=== PATIENT | male | born 1990 | race Caucasian/White ===

== ENCOUNTER 2023-06-18 18:49 | Emergency (ER) | payer OTHER, SELFPAY ==
[2023-06-18 18:52] VITALS: BP 138/95
[2023-06-18 19:17] VITALS: BMI 35.2
--- NOTE | 2023-06-18 20:40 | ED.GENMED ---
History of Present Illness
General
Chief Complaint: Bowel Problem
Source: patient, records and family
Exam Limitations: none
Time Seen by Provider: 06/18/23 19:03
Nursing documentation reviewed up to this point in time: agreed with
Travel History
Have you had any contact with someone who has COVID-19?: No
Do you have any symptoms of coronavirus? Fever > 100 degrees, chills, cough, shortness of breath, sore throat, loss of taste or smell, muscle aches, or headache?: No
History of Present Illness
History of Present Illness:
Patient is a 32-year-old male with a history of spina bifida and chronic constipation who presents because of no significant bowel movement in the past few days. Patient denies any abdominal pain or distention. Patient denies any nausea or
vomiting. Patient denies any decreased appetite. Patient's mother is given irrigation through cecostomy tube as well as Dulcolax, mag citrate and soapsuds irrigation. Patient denies fever and chills. Patient was recently diagnosed with
hypothyroidism but has not started the medication as of yet.
Past History
Past History
ED Past Medical History: None and Other (spina bifida/shunt/cecostomy)
ED Past Surgical History: None
Social History
Tobacco: Non-smoker
Alcohol: None
Drug: None
Personal: Single
Living: with family
Family History
Family History: Negative Diabetes, Hypertension or CAD
Review of Systems
Review of Systems
All Other Systems: Not applicable
Phy Exam
Physical Exam
Physical Exam:
Physical Exam
General: No apparent distress, alert and appropriate, well nourished, well hydrated
HENT: Normocephalic, supple with no lymphadenopathy, no thyromegaly
Eyes: Clear sclera, conjuctiva without injection
Heart: Regular rhythm and rate. No S3, S4.
Lungs: No respiratory distress, no stridor, lung sounds clear and equal bilaterally
Abdomen: Soft, nontender, no organomegaly, BS good
Neuro: Unchanged
Skin: no rash
Psychiatric: well kept. interactive and cooperative
Extremities: No edema, cyanosis
Course
Orders/Labs/Results
Orders:
Orders
06/18/23 19:18
Abdomen Xray - 1 View [CR Abdomen - 1 View] Urgent
Comment:
Reason For Exam: fecal impaction?
Vital Signs
Initial and Last Documented VS:
Initial Vital Signs
Temp Pulse Resp BP Pulse Ox
98.6 F 87 18 138/95 99
06/18/23 18:52 06/18/23 18:52 06/18/23 18:52 06/18/23 18:52 06/18/23 18:52
Last Documented Vital Signs
Temp Pulse Resp BP Pulse Ox
98.6 F 87 18 138/95 99
06/18/23 18:52 06/18/23 18:52 06/18/23 18:52 06/18/23 18:52 06/18/23 18:52
*Radiology
Radiology exam reviewed: radiology read reviewed (No stool burden)
*Pulse Oximetry
Patient hypoxic: no
*EKG
Interpreted by ED Provider?: NA
*Care Taker Interpretation
Rate: Care Taker- N/A
*Critical Care Note
Total Time (30-74mins, 75-104mins- exclusive of procedures): Not Applicable
ED Attending Note
-
Portions of this chart may have been created with voice recognition software.� Occasional wrong word or��sound alike� substitutions may have occurred due to the inherent limitations of voice recognition software.
Discharge Plan
Departure
Patient Disposition: Home (Routine Discharge)
Date of Disposition: 06/18/23
Time of Disposition: 20:43
Patient with high blood pressure during this ER visit?: No
Condition: Good
Covid-19: Not Applicable
Discharge Problem:
Constipation
Instructions: Constipation, Adult (DC)
Prescriptions:
No Action
divalproex 250 MG tablet,delayed release (DR/EC)
250 mg PO .AM
oxybutynin chloride 5 MG tablet
5 mg PO BID
Depakote:
375 mg PO HS
sulfamethoxazole-trimethoprim 20 ML suspension
20 ml PO Q12 Qty: 120 0RF
Rx Instructions:
20 ml PO every 12 hours for 4 days
Referrals:
Salomón Chen MD [Family Provider] - As needed
Activity Restrictions/Additional Instructions:
Continue present medications and therapy.
Interventions
Interventions:
*Risk Screen - Suicide Last Done: 06/18/23 18:52
*General Assessment Last Done: 06/18/23 18:52
*Neglect/Abuse Screening Last Done: 06/18/23 18:52
ED- Fall Risk Assessment Last Done: 06/18/23 18:52
*ED COVID-19 Vaccine History Last Done: 06/18/23 18:52
XE-Ahdfip-Iglmadetrd Assessment Last Done: 06/18/23 19:17
[2023-06-18 21:26] VITALS: BP 142/89
== END 2023-06-18 21:28 | disposition home or self-care (01) ==
LOC: EMR 18:49
PROVIDERS: EMERGENCY PHYSICIAN Emergency Medicine; FAMILY PHYSICIAN Family Medicine
DX: K59.00 Constipation, unspecified (principal); E03.9 Hypothyroidism, unspecified; Q05.9 Spina bifida, unspecified
CPT/HCPCS: 99283; 74018

== ENCOUNTER → 2024-01-24 15:30 | Outpatient (REF) | payer OTHER, SELFPAY | LOC: RAD 15:30 | PROVIDERS: ATTENDING PHYSICIAN Specialist; FAMILY PHYSICIAN Family Medicine | DX: N31.9 Neuromuscular dysfunction of bladder, unspecified (principal) | CPT/HCPCS: 76770 ==

== ENCOUNTER 2024-05-28 04:20 | Inpatient (IN) | payer OTHER, SELFPAY ==
[2024-05-27 21:06] VITALS: BP 150/108
[2024-05-27 23:43] LABS: Urine Albumin Negative (Neg - Trace); Urine Bilirubin 1+ (Negative); Urine Character Clear (Clear); Urine Color Yellow; Urine Glucose Negative (Negative); Urine Ketone 2+ (Negative); Urine Leukocyte Negative (Negative); Urine Nitrite Negative (Negative); Urine Occult Blood Negative (Negative); Urine Urobilinogen 1+ (Neg - 1+); Urine pH 6.5 (5.0-9.0)
[2024-05-28] VITALS (9 sets, daily range): BP systolic 114–158; BP diastolic 83–108
[2024-05-28 01:00] LABS: % Basophils 0.4 % (0-2); % Eosinophils 0.1 % (0-6); % Immature Granulocytes 3.7 % (0-0.5); % Lymphocytes 11.1 % (20.5-51.1); % Monocytes 6.7 % (1.7-9.3); Absolute Immature Granulocytes 0.3 10^3/uL (0-0.05); Absolute Lymphocytes 0.9 10^3/uL (1.2-3.4); Absolute Monocytes 0.6 10^3/uL (0.1-0.6); Absolute Neutrophils 6.5 10^3/uL (1.4-6.5); Hematocrit 41.9 % (39.0-52.0); Hemoglobin 13.7 g/dL (13.0-18.0); Mean Corp Hgb Conc. 32.7 g/dL (33.0-37.0); Mean Corpuscular Hgb 28.6 pg (27.0-31.0); Mean Corpuscular Volume 87.5 fL (80.0-94.0); Nucleated Red Blood Cells % 0 % (-); Platelet Count 281 10^3/uL (130-400); Red Blood Cell Count 4.79 10^6/uL (4.70-6.10); Red Cell Dist. Width 14.7 % (11.5-14.5); White Blood Cell Count 8.4 10^3/uL (4.8-10.8)
[2024-05-28] MEDS: ZOFRAN 4 MG IV (01:15)
[2024-05-28] MEDS: TORADOL 15 MG IV (01:15)
[2024-05-28 01:24] LABS: ALT (SGPT) 1557 U/L (0-50); AST (SGOT) 896 U/L (17-59); Albumin 4.5 g/dl (3.5-5.0); Alkaline Phosphatase 272 U/L (38-126); Blood Urea Nitrogen 10 mg/dl (9-20); Calcium 9.1 mg/dl (8.4-10.2); Carbon Dioxide 25 mmol/L (22-30); Chloride 101 mmol/L (98-107); Glucose 146 mg/dl (70-99); Potassium 4.3 mmol/L (3.5-5.1); Sodium 139 mmol/L (135-145); Total Bilirubin 3.4 mg/dl (0.2-1.3); Total Protein 7.3 g/dl (6.3-8.2); eGFR > 60.00
--- NOTE | 2024-05-28 01:36 | ED.GENMED ---
History of Present Illness
General
Chief Complaint: Male Genito-Urinary Symptoms
Source: patient and family
Exam Limitations: none
Time Seen by Provider: 05/28/24 00:15
Nursing documentation reviewed up to this point in time: agreed with
History of Present Illness
History of Present Illness:
This is a 33-year-old gentleman with history of spina bifida, seizure disorder, RANGE OPERATOR shunt, neurogenic bladder. Self catheterizes 4-5 times per day. Resides at home with his parents.
He presents tonight with complaints of left flank/left back pain associated with nausea without vomiting. Pain began this evening and has been persistent. He admits that he has difficulty finding a comfortable position but repositioning does not
exacerbate his pain. He has not had a fever, no chest pain. He does admit to mild nasal congestion, mild intermittent dry cough with mild URI symptoms that began a few days ago, improving. His mother is concerned that his urine has been bright
yellow this morning and somewhat more concentrated, darker in color this evening. He has had previous UTIs and generally with UTI his urine is cloudy which it has not been today.
He has chronic constipation, has cecostomy in place. Constipation and bowel movements have been stable/unchanged.
Past History
Past History
ED Past Medical History: None and Other (spina bifida/shunt/cecostomy)
ED Past Surgical History: None
Social History
Tobacco: Non-smoker
Alcohol: None
Drug: None
Personal: Single
Living: with family
Family History
Family History: Negative Diabetes, Hypertension or CAD
Phy Exam
Physical Exam
Physical Exam:
GENERAL: 33-year-old gentleman appears his stated age, bright and alert, pleasant, appears in no acute distress. Both parents are accompanying.
EYE: Pupils are equal.
NECK: Supple, nontender, no meningismus, no significant adenopathy.
ENT: posterior pharynx is clear, oral mucosa is moist. TM clear b/l, nares have mild clear rhinorrhea.
CARDIAC: Regular rate and rhythm. no murmur.
LUNGS: Clear breath sounds bilaterally, no acute respiratory distress, no wheezes/rales/rhonchi
ABDOMEN: Soft, nondistended, mild generalized upper abdominal tenderness with deep palpation only, no r/g, mild left CVA tenderness with percussion. Normoactive BS.
NEUROLOGICAL: Alert and oriented x3, no lateralizing weakness.
SKIN: Warm and dry, normal color, skin intact. No rash.
MUSCULOSKELETAL: No C/C/E. peripheral pulses are full and equal b/l. No palpable tenderness.
PSYCH: Normal and appropriate interaction.
Sepsis
Sepsis Screening
Sepsis Assessment: Sepsis Ruled Out
Sepsis Screen
Sepsis Screen: Sepsis Ruled Out
Date: 05/28/24
Time: 07:23
Course
Orders/Labs/Results
Orders:
Orders
05/27/24 23:13
Complete Blood Count/With Diff Urgent
Comprehensive Metabolic Panel Urgent
05/27/24 23:19
Urinalysis Urgent
Date Specimen was Collected: 05/27/24
Time Specimen was Collected: 21:11
05/28/24 00:36
CT Abd/pel Without Iv Or Oral Urgent
Comment:
Reason For Exam: acute left flank pain, nausea
05/28/24 00:37
Ketorolac [Toradol] 15 mg IV NOW STA
Ondansetron Injectable [Zofran] 4 mg IV NOW STA
05/28/24 00:44
Lipase Urgent
05/28/24 01:27
Add On- LAB Urgent
Tests Added?: lipase
05/28/24 02:15
Divalproex Sodium [Depakote Sprinkle] 375 mg PO NOW STA
Piperacillin/Tazo 4.5 Gram [Zosyn] 4.5 gram in 100 ml IV NOW
05/28/24 02:19
0.9% Sodium Chloride 1000 ml [Nss] 1,000 ml IV 250 mls/hr
Morphine Sulfate 4 mg IV NOW STA
US Abdomen Complete/Upper Urgent
Comment:
Reason For Exam: back pain, elevated LFT's
05/28/24 03:56
Admit/Transfer Patient As Directed
Co-Sign Provider:
Level of Care: Inpatient admission
Assign to:: Telemetry
Physician / Group: Ha
Diagnosis: Acute Calculous Cholecystitis
Reason for Telemetry: Arrhythmia
Date to Stop Telemetry: 05/31/24
Time to Stop Telemetry: 11:00
Reason for Hospitalization: Acute Calculous Cholecystitis
Expected length of stay greater than two midnights?: Yes
ELOS- Estimated Length of Stay in days: 3
I certify the patient meets the requirements for IP care: Yes
PRN Pain Medication Management As Directed
May give lesser potent ordered pain med per pt: Yes
preference::
Protocol:: Medication orders for pain may be administered in a
manner that supports deferring to patient preference
when the pt is:
- Requesting an ordered lesser potent pain medication.
Least to most potent pain medications are defined
as: acetaminophen < NSAID < tramadol < opioids
(morphine, oxycodone, hydromorphone).
- Requesting a lesser dose of the same medication IF
ORDERED.
- Requesting a less intrusive route of administration
if both routes are prescribed by the provider (PO <
IV).
05/28/24 03:57
Code Status As Directed
Resuscitation Status: Full Code
05/28/24 05:04
Acetaminophen [Tylenol] 650 mg PO Q4HPRN PRN
Divalproex Delayed Rel. 12 Hr [Depakote (12 Hr Release)] 250 mg PO DAILY
HYDROmorphone [Dilaudid] 0.5 mg IV Q4HPRN PRN
Ondansetron Injectable [Zofran] 4 mg IV Q6HPRN PRN
05/28/24 05:04
SURGICAL CONSULT Routine
Consulting Provider: Trevin Galindo
Was physician already notified: Yes
Reason for consult: Acute Calculous Cholecystitis
Activity As Directed
Activity Level: Out of Bed- Chair
With Assistance
Bladder Scan As Directed
Follow Bladder Retention/Intermittent Cath Algorithm?: Yes
PRN if no void in __ hours: 6
Frequency: Per Retention Algorithm
If Bladder Scan Result >: 400
then:: Straight cath
I/O [Intake/ Output] As Directed
Frequency: Per unit guidelines
Ostomy Care As Directed
Precautions As Directed
Type of Precautions: Seizure
Straight Cath As Directed
Frequency: Per Retention Algorithm
Additional Instructions: straight cath as needed per acute urinary retention algorithm for 24 hrs
Additional Instructions: for bladder scan greater than 400 mL
Vital Signs As Directed
Frequency: Per unit guidelines
Weight As Directed
Frequency: Daily
Oxygen Therapy [O2 Therapy] [RESP] Routine
Titrate/Wean O2 to maintain O2 sat greater than (%): 94
DX Deep Vein Thrombosis Video Routine
05/28/24 05:17
Complete Blood Count/No Diff IN AM
Hepatitis A Antibody, Total Routine
Hepatitis A IgM Antibody Routine
Hepatitis B Core Ab, IgM Routine
Hepatitis B Core Ab, Total Routine
Hepatitis B Surface Antibody Routine
Hepatitis B Surface Antigen Routine
Hepatitis C Antibody Routine
Monotest Urgent
05/28/24 Breakfast
NPO
Allow oral meds: Yes
Allow clear liquids: Sips of Clears
05/28/24 08:00
Ditropan 7.5 ml PO BID
Heparin 5,000 units SC Q8
Pantoprazole [Protonix IV] 40 mg IV DAILY
sertraline 25 mg PO BID
05/28/24 12:00
Piperacillin/Tazo 3.375 Gram [Zosyn] 3.375 gram in 50 ml IV Q6H
05/28/24 22:00
Depakote: 375 mg PO HS
05/31/24 11:00
DC Protocol for Telemetry ONCE
Abnormal Lab Results
05/27/24 05/28/24
23:19 00:44
MCHC 32.7 L g/dL
(33.0-37.0)
RDW 14.7 H %
(11.5-14.5)
Abs Immat Gran (auto) 0.3 H 10^3/uL
(0-0.05)
Absolute Lymphs (auto) 0.9 L 10^3/uL
(1.2-3.4)
Immature Gran % 3.7 H %
(0-0.5)
Neutrophils % 78.0 H %
(42.2-75.2)
Lymphocytes % 11.1 L %
(20.5-51.1)
Creatinine 0.3 L mg/dL
(0.7-1.3)
Glucose 146 H mg/dl
(70-99)
Total Bilirubin 3.4 H mg/dl
(0.2-1.3)
AST 896 H* U/L
(17-59)
ALT 1557 H* U/L
(0-50)
Alkaline Phosphatase 272 H U/L
(38-126)
Urine Ketones 2+ A
(Negative)
Urine Bilirubin 1+ A
(Negative)
05/28/24 00:44
05/28/24 00:44
Vital Signs
Initial and Last Documented VS:
Initial Vital Signs
Temp Pulse Resp BP Pulse Ox
99 F 88 22 150/108 98
05/27/24 21:06 05/27/24 21:06 05/27/24 21:06 05/27/24 21:06 05/27/24 21:06
Last Documented Vital Signs
Temp Pulse Resp BP Pulse Ox
99 F 89 20 114/83 98
05/27/24 21:06 05/28/24 05:05 05/28/24 05:05 05/28/24 05:05 05/28/24 05:05
MDM/Problems Addressed
Differential Diagnosis Includes:
Concern for UTI, ureteric stone, musculoskeletal back pain, pneumonia, gastroenteritis, pancreatitis.
Overall appears comfortable. Afebrile.
Thus far urine is unremarkable save for +1 urobilinogen, +2 ketones. Clinically patient appears euvolemic.
Labs are pending.
Will check CT abdomen and pelvis.
Will medicate for pain and nausea with Toradol and Zofran.
Chronic conditions affecting care: Neurological disorder
*Radiology
Radiology exam reviewed: radiology read reviewed
*Pulse Oximetry
Patient hypoxic: no
*Critical Care Note
Total Time (30-74mins, 75-104mins- exclusive of procedures): Not Applicable
Update Note
Update Note:
02:15
Patient has had relief of nausea but continues with primarily left flank/left back pain.
Labs remarkable for significantly elevated LFTs, elevated T. bili of 3.4, elevated alkaline phosphatase of 275. Lipase is normal.
CAT scan shows a prominent gallstone with mild gallbladder wall thickening concerning for cholecystitis. No bowel obstruction.
Will initiate IV Zosyn for acute cholecystitis.
General surgery notified. Recommend admit to hospital service with consult to surgery.
ED Attending Note
-
Portions of this chart may have been created with voice recognition software.� Occasional wrong word or��sound alike� substitutions may have occurred due to the inherent limitations of voice recognition software.
Discharge Plan
Departure
Patient Disposition: Admit
Date of Disposition: 05/28/24
Time of Disposition: 02:18
Admit to: Med/Surg
Admit to doctor: Ha
Presentation/result/management discussed w/ accepting MD/DO: Hospitalist
Discharge Problem:
Acute calculous cholecystitis, Spina bifida with hydrocephalus, lumbar region
Interventions
Interventions:
*Risk Screen - Suicide Last Done: 05/27/24 21:06
*General Assessment Last Done: 05/28/24 01:06
*Neglect/Abuse Screening Last Done: 05/27/24 21:06
ED- Fall Risk Assessment Last Done: 05/28/24 01:06
*ED COVID-19 Vaccine History Last Done: 05/28/24 01:06
ED-Male Genitourinary Assessment Last Done: 05/28/24 01:06
[2024-05-28 02:01] LABS: Lipase 69 U/L (23-300)
--- NOTE | 2024-05-28 04:01 | HPS.HSE ---
Family Physician
-
Family Physician: Salomón Chen
Chief Complaint
-
Abd Pain
History of Present Illness
Patient is a 33y M with PMH significant for spina bifida s/p MANAGER PROCUREMENT shunt, seizure disorder and chronic constipation / cecostomy who presents to ED complaining of abdominal pain. History obtained from patient and his family at the bedside. Patient
states that he was feeling fairly well until this evening when he developed L flank pain radiating around to his abdomen. The pain started shortly after eating dinner. He had nausea with 'dry heaves' but no actual emesis. Patient denies any
fevers / chills. He denies any prior history of similar symptoms.
Mother noted that his urine was bright yellow in appearance all day today - which is also unusual.
Evaluation in the ED reveals abnormal LFTs and large gallstone with GB wall thickening.
Medical History
Past Medical History
Past Medical History: Reports Other
Additional Past Medical History:
Spina Bifida
Arnold Chiari Syndrome
Seizure Disorder
Neurogenic Bladder
Chronic Constipation
Past Surgical History: Reports Other
Additional Past Surgical History:
MANAGER PROCUREMENT Shunt (6 revisions - most recent in 2004)
Cecostomy
Bilateral Achilles Tendon Release
Lumbar Fusion
Social History
Tobacco: Non-smoker
Alcohol: None
Living: With Family
Family History
Family History: Not pertinent
Allergies / Home Medications
Allergies reflects when Allergies were last updated in [facility].
Home Medications with original date entered in [facility]
Allergy/Medication List:
Allergies
Allergy/AdvReac Type Severity Reaction Status Date / Time
latex [Latex] Allergy Unknown Verified 05/27/24 21:10
Home Medications
Depakote: 375 mg PO HS 12/11/11
divalproex 250 mg tablet,delayed release 250 mg PO .AM 12/11/11
Ditropan 7.5 ml PO BID 05/28/24
Miralax 12.5 ml PO DAILY 05/28/24
levothyroxine 1 tab PO DAILY 05/28/24
sertraline 25 mg PO BID 05/28/24
Review of Systems
-
History Source: Patient
A 12 point ROS was completed and negative except as noted: Yes
Constitutional: Denies Fever or Chills
Respiratory: Denies Cough or Trouble Breathing
Cardiac: Denies Chest Pain or Palpitations
Abdomen/GI: Reports Abdominal Pain, Nausea and Constipated; Denies Vomiting, Diarrhea or Anorexia
: Reports Flank Pain and Difficulty Voiding; Denies Dysuria or Frequency
Musculoskeletal: Denies Joint Pain or Edema
Neurological: Denies Dizzy or Headache
Physical Exam
Vital Signs
Vital Signs
Temp Pulse Resp BP Pulse Ox
99 F 84 20 146/95 98
05/27/24 21:06 05/28/24 01:06 05/28/24 01:06 05/28/24 01:06 05/28/24 01:06
Physical Exam
General: Other (33y M in no acute distress at present.)
HEENT: Moist mucous membranes and PERRLA
Respiratory: Clear; No Wheezes or Rales
Cardiac: S1/S2 and Regular Rhythm; No Murmur
GI: Soft, Non Distended and Other (Epigastric / LUQ tenderness without rebound or guarding. Pos BS. Cecostomy.)
Musculoskeletal: No Clubbing, No Cyanosis and Other (Trace LE edema.)
Neuro: AO x 3
Laboratory Results
-
05/28/24 00:44
05/28/24 00:44
Laboratory Results
Total Bilirubin 3.4 mg/dl (0.2-1.3) H 05/28/24 00:44
AST 896 U/L (17-59) H* 05/28/24 00:44
ALT 1557 U/L (0-50) H* 05/28/24 00:44
Alkaline Phosphatase 272 U/L (38-126) H 05/28/24 00:44
Lipase 69 U/L (23-300) 05/28/24 00:44
Impression/Plan
-
A/P: Patient is a 33y M with PMH significant for spina bifida and seizure disorder who presents to ED complaining of abdominal pain since this evening.
Acute Calculous Cholecystitis
Abnormal LFTs
- Admit for further evaluation and treatment.
- Patient presents with post-prandial pain, nausea, abnormal LFTs and large gallstone / GB wall thickening on imaging.
- Continue IV abx with Zosyn for now.
- Surgery evaluation for additional recommendations / possible cholecystectomy.
- Follow for any new / worsening symptoms.
- Check viral studies / serologies for completeness.
Spina Bifida
Seizure Disorder
- Stable. No recent seizure activity on current med regimen.
- Continue usual AED regimen without interruption.
- Follow for any breakthrough seizure activity.
- MANAGER PROCUREMENT shunt in place - last revised in 2004. No recent issues.
Chronic Constipation
- Impaired transit secondary to underlying neurologic disorder.
- Has cecostomy and tube for administration of enemas (tap water) four times weekly.
- Ostomy care.
- Follow bowel movements / etc.
Neurogenic Bladder
- Patient self-caths about 4-5 times daily on average.
- Bladder scan protocol.
- Straight cath as needed. OK for patient to self-cath.
Hypothyroidism
- Patient not certain of current T4 dose.
- Restart T4 supplementation once dose confirmed.
DVT Prophylaxis: Subcut Heparin
Code Status: Full
[2024-05-28] MEDS: NSS 1000 IV ×2 (05:00→23:36)
[2024-05-28 05:34] LABS: Hematocrit 40.7 % (39.0-52.0); Hemoglobin 13.5 g/dL (13.0-18.0); Mean Corp Hgb Conc. 33.2 g/dL (33.0-37.0); Mean Corpuscular Volume 87.5 fL (80.0-94.0); Mean Platelet Volume 10.4 fL (7.4-10.4); Platelet Count 274 10^3/uL (130-400); Red Blood Cell Count 4.65 10^6/uL (4.70-6.10); Red Cell Dist. Width 14.8 % (11.5-14.5); White Blood Cell Count 7.8 10^3/uL (4.8-10.8)
[2024-05-28 05:39] LABS: Monotest Negative (Negative)
[2024-05-28] MEDS: ZOSYN 100 IV (05:55)
[2024-05-28 05:57] LABS: Albumin 4.2 g/dl (3.5-5.0); Alkaline Phosphatase 266 U/L (38-126); Blood Urea Nitrogen 10 mg/dl (9-20); Calcium 8.9 mg/dl (8.4-10.2); Carbon Dioxide 26 mmol/L (22-30); Chloride 99 mmol/L (98-107); Direct Bilirubin 2.4 mg/dl (0.0-0.4); Glucose 131 mg/dl (70-99); Potassium 4.3 mmol/L (3.5-5.1); Sodium 137 mmol/L (135-145); Total Bilirubin 3.5 mg/dl (0.2-1.3); Total Protein 6.8 g/dl (6.3-8.2); eGFR > 60.00
[2024-05-28] MEDS: MORPHINE SULFATE 4 MG IV (06:05)
[2024-05-28 06:06] LABS: ALT (SGPT) 1471 U/L (0-50); AST (SGOT) 817 U/L (17-59)
[2024-05-28] MEDS: DEPAKOTE (12 HR RELEASE) PO (06:14)
[2024-05-28] MEDS: ZOSYN IV ×2 (06:15→06:45)
[2024-05-28 06:23] LABS: Hepatitis B Surface Antigen Negative (Negative)
[2024-05-28 06:41] LABS: Hepatitis A Antibody, Total Negative (Negative); Hepatitis B Core Ab, Total Negative (Negative); Hepatitis B Surface Antibody Negative; Hepatitis C Antibody Negative (Negative)
[2024-05-28] MEDS: DEPAKOTE (12 HR RELEASE) 250 MG PO (06:46)
--- NOTE | 2024-05-28 08:04 | W.PN.HOSP.TC ---
Today's Communication/Plan
-
MRI
NPO
IVF
Zosyn
GI and Surgery eval
Assessment / Plan
Assessment / Plan
33-year-old male with abdominal pain
Ultrasound of the abdomen 05/28/2024-nonvisualization of the pancreas and spleen. Gallstone with gallbladder wall thickening suggestive of acute cholecystitis
CT abdomen and pelvis-gallstone with possible acute cholecystitis moderate fecal material throughout the colon
Patient is awake and alert denies any right upper quadrant pain. He still has mild left upper quadrant pain
Cardiovascular system S1-S2 appreciated
Chest clear to auscultation
Abdomen mild discomfort to palpation left side no guarding or rigidity
Right cecostomy tube
# Elevated LFTs with hyperbilirubinemia
Postprandial pain nausea
No right upper quadrant pain. Lipase level is normal
Continue IV Zosyn
Get MRI/MRCP
Surgery evaluation appreciated
GI evaluation requested
Check hepatitis panel
# Spina bifida/Chiari II malformation
# Seizure disorder-continue Depakote 250 mg in the morning and 370 5 at night
# Hypothyroidism-continue levothyroxine
# Neurogenic bladder With self-catheterization 4 to 5 times a day
# History of AUTOMATION ARCHITECT shunt with 6 revisions most recent in 2004
# Chronic constipation-continue MiraLAX when taking p.o.
Has cecostomy in 2012 and tube for administration of enemas (tap water) four times weekly.
I discussed that this needs to be continued here he already has constipation on the CAT scan.
Mother has to help the patient with this and they will try it today afternoon
# History of kyphosis /scoliosis /lumbar fusion surgery
# DVT prophylaxis-subcutaneous heparin
# Full code
Discussed with surgeon
D/w MOM AT BED SIDE
Anticipated Discharge: > 48 hours
Subjective/Interval History
-
Date of Service: May 28, 2024
Objective Data
-
Labs:
Laboratory Results
05/28/24 05/28/24
00:44 05:17
WBC 8.4 7.8
Hgb 13.7 13.5
Hct 41.9 40.7
Plt Count 281 274
Sodium 139 137
Potassium 4.3 4.3
Chloride 101 99
Carbon Dioxide 25 26
BUN 10 10
Creatinine 0.3 L 0.4 L
Glucose 146 H 131 H
Calcium 9.1 8.9
Total Bilirubin 3.4 H 3.5 H
AST 896 H* 817 H*
ALT 1557 H* 1471 H*
Alkaline Phosphatase 272 H 266 H
Vital Signs:
Vital Signs
Temp Pulse Resp BP Pulse Ox
99 F 89 20 114/83 98
05/27/24 21:06 05/28/24 05:05 05/28/24 05:05 05/28/24 05:05 05/28/24 05:05
[2024-05-28] MEDS: HEPARIN SC ×2 (08:32→17:18)
[2024-05-28] MEDS: NSS (PRESERVATIVE FREE) 10 ML IV (08:32)
[2024-05-28] MEDS: PROTONIX IV 40 MG IV (08:35)
--- NOTE | 2024-05-28 10:29 | CON.GI ---
Addendum entered and electronically signed by Fanta Perez DO 05/28/24 13:16:
The patient was seen and examined by me independently in collaboration with the nurse practitioner.
Past medical history/social history/medications/allergies/family history reviewed.
Lab data and imaging data reviewed.
33 y.o. male w/ pmhx spina bifida w/ GLASS CUT OFF SUPERVISOR shunt with multiple revisions, chronic constipation s/p cecostomy, seizure d/o, Arnold Chiari syndrome, neurogenic bladder admitted with acute onset left flank pain with radiation to back with associated N/V.
Never had pain like this before. He administers tap water enemas 4x per week, varying consistencies. No change in stool recently.
Labs demonstrate significant liver enzyme elevation, Tbili 3.4, AST 896, ALT 1557, Alk phos [address] scan showing cholelithiasis with possibly acute cholecystitis. Moderate stool burden noted. Abdominal US was subsequently obtained showing a
large, 3.3 cm gallstone in the body with GB wall thickening measuring up to 7 mm. No CBD dilation.
Repeat LFTs show some improvement. Location of pain is baffling, not consistent with biliary pain, however, onset did occur after dinner last night. Overall, he has had improvement in pain but did receive pain medication. He is due for enema today,
does have moderate stool burden present, trapped air/gas? No improvement with belching, has not passed gas.
Plan
-MRCP to evaluate for choledocholithiasis
-scheduled enemas, add miralax prn
-surgical eval
-trend LFTs
Original Note:
Consultation
-
Date/Time Consultation Requested: 05/28/24 0830
Date/Time Consultation Performed: 05/28/24 1030
Requesting Provider: Katie Talbert MD
Performing Provider: YAHAIRA Polk, Kita Perez,
Reason for Consultation: increased LFT's, epigastric and left sided pain
Medical History
Chief Complaint / HPI
Chief Complaint: left side pain with nausea/dry heaves
History of Present Illness:
Pt is a 33yo with spina bifida with GLASS CUT OFF SUPERVISOR shunt with multiple revisions, Seizure disorder, chronic constipation- cecostomy with 4 times per week flush, Arnold Chiari syndrome, neurogenic bladder and now presents with left flank/back pain with nausea
and vomiting. On admission noted with bili 3.4, AST 896, ALT 1557, alk phos 272. CT without contrast Gallstone with possible acute cholecystitis. Abdominal ultrasound recommended. Moderate fecal material throughout the colon. US noted with
Nonvisualization of the pancreas and spleen. Gallstone with gallbladder wall thickening suggesting acute cholecystitis. Clinical and laboratory correlation recommended. Stable with normal CBD 8mm.
In review with patient he has had longstanding constipation issues. He had cecostomy tube placed at [facility] in 2011 and goes for every 6 months changes at [facility]. He was following with Dr. Kern at [place] but has recently retired.
He states he flushes cecostomy tube about 900ml 4 days per week and takes Miralax 1/2 capful daily. He also admits to occasional Imodium use when going out as afraid of accidents. He was doing well but then developed dark urine 05/27 am followed
by post prandial pain after 05/27 dinner with nausea and dry heaves. He is feeling better after admission but still persistent elevated liver functions. No hx similar pain in past. He denies issues with diarrhea or bloody stools. hx colonoscopy
years ago noted tortuous with constipation work up. Pt denies anticoagulation or NSAID use. No hx GPL1 use.
Past Medical History
Past Medical History: Seizures and Other (spina bifida, chronic constipation- cecostomy, arnold chiari syndrome, neurogenic bladder )
Past Surgical History: Orthopedic (lumbar fusion, achilles tendon release) and Other (s/p shunt with multiple revisions)
Social History
Tobacco: Non-Smoker
Alcohol: None
Drug: None
Living: With Family
Family History
Family History: Other (father with hx gallbladder problems)
Allergies / Home Medications
Allergy/AdvReac Type Severity Reaction Status Date / Time
latex [Latex] Allergy Unknown Verified 05/27/24 21:10
�Medication �Instructions �Recorded
acetaminophen 325 mg tablet 325 mg PO DAILYPRN PRN stomach 05/28/24
(Tylenol) pains
calcium carbonate (Calcium 500) 1,000 mg PO DAILY 05/28/24
cholecalciferol (vitamin D3) 25 25 mcg PO DAILY 05/28/24
mcg (1,000 unit) chewable tablet
(Vitamin D3)
divalproex 125 mg capsule,delayed 250 mg PO DAILY 05/28/24
release sprinkle
divalproex 125 mg capsule,delayed 375 mg PO HS 05/28/24
release sprinkle
levothyroxine 88 mcg tablet 88 mcg PO DAILY 05/28/24
(Synthroid)
oxybutynin chloride 5 mg/5 mL oral 7.5 mg PO BID 05/28/24
syrup
polyethylene glycol 3350 17 gram 17 g PO DAILYPRN PRN constipation 05/28/24
oral powder packet (Miralax)
sertraline 50 mg tablet 25 mg PO BID 05/28/24
Review of Systems
-
History Source: Patient and Family
Constitutional: Reports Weight Gain (over several years )
EENT: Reports No Symptoms
Respiratory: Reports No Symptoms
Cardiac: Reports Chest Pain (with abdominal pain )
Abdomen/GI: Reports Abdominal Pain (epigastric with wrap around pain to left side ) and Nausea
: Reports Dark Urine
Musculoskeletal: Reports No Symptoms
Skin: Reports No Symptoms
Neurological: Reports Weakness
Endocrine: Reports No Symptoms
Hematologic/Lymphatic: Reports No Symptoms
Vital Signs
Temp Pulse Resp BP Pulse Ox
98.3 F 91 14 149/88 94
05/28/24 08:25 05/28/24 08:25 05/28/24 08:25 05/28/24 08:25 05/28/24 08:25
Physical Exam
Exam
General: Well Developed, Well Nourished and No Apparent Distress
HEENT: Normocephalic and Anicteric
Respiratory: Clear
Cardiac: Regular Rhythm
GI: Soft, Non Distended, Tender (minimal left flank area ) and Other (right sided cecostomy but with dressing intact )
Musculoskeletal: No Clubbing, No Cyanosis and Edema
Skin: Warm and Dry
Neuro: Awake, Alert, AO x 3 and Other (LE weakness with spinobifida )
Psych: Calm
Results
WBC 7.8 10^3/uL (4.8-10.8) 05/28/24 05:17
Hgb 13.5 g/dL (13.0-18.0) 05/28/24 05:17
Hct 40.7 % (39.0-52.0) 05/28/24 05:17
MCV 87.5 fL (80.0-94.0) 05/28/24 05:17
Plt Count 274 10^3/uL (130-400) 05/28/24 05:17
Absolute Neuts (auto) 6.5 10^3/uL (1.4-6.5) 05/28/24 00:44
Sodium 137 mmol/L (135-145) 05/28/24 05:17
Potassium 4.3 mmol/L (3.5-5.1) 05/28/24 05:17
Chloride 99 mmol/L (98-107) 05/28/24 05:17
Carbon Dioxide 26 mmol/L (22-30) 05/28/24 05:17
BUN 10 mg/dl (9-20) 05/28/24 05:17
Creatinine 0.4 mg/dL (0.7-1.3) L 05/28/24 05:17
Calcium 8.9 mg/dl (8.4-10.2) 05/28/24 05:17
Total Bilirubin 3.5 mg/dl (0.2-1.3) H 05/28/24 05:17
AST 817 U/L (17-59) H* 05/28/24 05:17
ALT 1471 U/L (0-50) H* 05/28/24 05:17
Alkaline Phosphatase 266 U/L (38-126) H 05/28/24 05:17
Lipase 69 U/L (23-300) 05/28/24 00:44
Hepatitis A IgM Ab Cancelled 05/28/24 05:17
Hepatitis A Ab Total Negative (Negative) 05/28/24 05:17
Hep Bs Antibody Negative 05/28/24 05:17
Hep B Core Total Ab Negative (Negative) 05/28/24 05:17
Hep B Core IgM Ab Cancelled 05/28/24 05:17
Hepatitis C Antibody Negative (Negative) 05/28/24 05:17
Diagnostic Image Results:
05/28/24 CT without contrast Gallstone with possible acute cholecystitis. Abdominal ultrasound recommended. Moderate fecal material throughout the colon.
05/28/24 US noted with Nonvisualization of the pancreas and spleen. Gallstone with gallbladder wall thickening suggesting acute cholecystitis. Clinical and laboratory correlation recommended. Stable with normal CBD 8mm.
Prior GI Procedures:
EGD: none
Colonoscopy: in past with constipation- tortuous colon ? polyps
Assessment / Plan
-
Pt is a 33yo with spina bifida with GLASS CUT OFF SUPERVISOR shunt with multiple revisions, Seizure disorder, chronic constipation- cecostomy with 4 times per week flush, Arnold Chiari syndrome, neurogenic bladder and now presents with left flank/back pain with nausea
and vomiting. On admission noted with bili 3.4, AST 896, ALT 1557, alk phos 272. CT without contrast Gallstone with possible acute cholecystitis. Abdominal ultrasound recommended. Moderate fecal material throughout the colon. US noted with
Nonvisualization of the pancreas and spleen. Gallstone with gallbladder wall thickening suggesting acute cholecystitis. Clinical and laboratory correlation recommended. Stable with normal CBD 8mm.
-epigastric/left sided pain
-increased LFT's
-CT/US with concern for acute cholecystitis
-hx chronic constipation with chronic cecostomy tube with flush 4 times per week- moderate stool on CT on admission
other med problems:
-spina bifida
-seizure disorder
-arnold chiari syndrome
-neurogenic bladder
PLAN:
etiology of symptoms related to acute cholecystitis vs retained CBD stone vs other
plan for MRI to eval for choledocholithiasis
if + stone then will need ERCP-- per family may have some difficulty with positioning if ERCP need with hx kyphosis
cont abx
cont PPI daily
trend labs
cont chronic management of cecostomy tube with 4 times per week flush 900ml -- due today -- timing pending MRI scheduled -- family will assist with care
cont Miralax PRN use 1/2 dose daily at home
await surgical input
family updated
-
-
Thank you for consultation and allowing me to participate in the patient's care. Please call the vocational rehabilitation supervisor GI physician during the after hours with any questions or concerns.
[2024-05-28] MEDS: SYNTHROID 88 MCG PO (11:45)
[2024-05-28] MEDS: VITAMIN D3 (cholecalciferol) 25 MCG PO (11:45)
[2024-05-28] MEDS: DITROPAN 7.5 MG PO ×2 (11:46→23:32)
[2024-05-28] MEDS: ZOSYN 50 IV ×3 (11:50→23:41)
[2024-05-28] MEDS: TYLENOL 650 MG PO (13:54)
--- NOTE | 2024-05-28 16:08 | CON.GS ---
Medical History
-
Chief Complaint: LUQ pain
History of Present Illness:
Patient is a 33 yo M with a PMH of spina bifida s/p GROUNDS/MAINTENANCE SPECIALIST shunt with multiple revisions, seizure disorder, chronic constipation s/p cecostomy tube, Arnold-Chiari syndrome, neurogenic bladder, s/p lumbar fusion, and s/p Achilles tendon releaseCordelia Moreno
presents to the hospital with acute onset LUQ flank pain. He was accompanied to the hospital by his mother. States that his pain began acutely yesterday evening after a salad. He has never had similar pain or discomfort previously. Associated
nausea and vomiting. No fevers or chills. He feels improved, though continues to have some mild discomfort. He denies any jaundice or pale stools. He does note darker orange urine.
Of note, during his prior cecostomy procedure his mother was told that he had extensive adhesions throughout his abdomen necessitating a lengthy procedure and an inability to identify the appendix.. He likely has chronic peritonitis related to his
GROUNDS/MAINTENANCE SPECIALIST shunt.
Past Medical History
Past Medical History: Other (Spina bifida, seizure disorder, chronic constipation, Arnold Chiari syndrome, neurogenic bladder)
Past Surgical History: Orthopedic (Lumbar spine fusion, Achilles tendon release) and Other (GROUNDS/MAINTENANCE SPECIALIST shunt, cecostomy tube)
Social History
Tobacco: Non-Smoker
Alcohol: None
Drug: None
Living: With Family
Family History
Family History: Reviewed & Not Pertinent
Allergies / Home Medications
Allergy/AdvReac Type Severity Reaction Status Date / Time
latex [Latex] Allergy Unknown Verified 05/27/24 21:10
�Medication �Instructions �Recorded �Confirmed �Type
acetaminophen 325 mg tablet 325 mg PO DAILYPRN PRN stomach 05/28/24 05/28/24 History
(Tylenol) pains
calcium carbonate (Calcium 500) 1,000 mg PO DAILY 05/28/24 05/28/24 History
cholecalciferol (vitamin D3) 25 25 mcg PO DAILY 05/28/24 05/28/24 History
mcg (1,000 unit) chewable tablet
(Vitamin D3)
divalproex 125 mg capsule,delayed 250 mg PO DAILY 05/28/24 05/28/24 History
release sprinkle
divalproex 125 mg capsule,delayed 375 mg PO HS 05/28/24 05/28/24 History
release sprinkle
levothyroxine 88 mcg tablet 88 mcg PO DAILY 05/28/24 05/28/24 History
(Synthroid)
oxybutynin chloride 5 mg/5 mL oral 7.5 mg PO BID 05/28/24 05/28/24 History
syrup
polyethylene glycol 3350 17 gram 17 g PO DAILYPRN PRN constipation 05/28/24 05/28/24 History
oral powder packet (Miralax)
sertraline 50 mg tablet 25 mg PO BID 05/28/24 05/28/24 History
Review of Systems
-
A 10 point review of systems was completed, and was negative except as per HPI.
Physical Exam
Vital Signs
Temp Pulse Resp BP Pulse Ox
98.3 F 81 17 146/96 94
05/28/24 08:25 05/28/24 14:15 05/28/24 14:15 05/28/24 11:57 05/28/24 13:45
05/27/24 05/28/24 05/29/24
06:59 06:59 06:59
Actual Weight 92.2 kg 92.2 kg
Lab Results
05/28/24 05:17
05/28/24 05:17
WBC 7.8 10^3/uL (4.8-10.8) 05/28/24 05:17
Hgb 13.5 g/dL (13.0-18.0) 05/28/24 05:17
Hct 40.7 % (39.0-52.0) 05/28/24 05:17
Plt Count 274 10^3/uL (130-400) 05/28/24 05:17
Abs Immat Gran (auto) 0.3 10^3/uL (0-0.05) H 05/28/24 00:44
Neutrophils % 78.0 % (42.2-75.2) H 05/28/24 00:44
Physical Exam
General: Well Developed, Well Nourished and No Apparent Distress
HEENT: Normocephalic and Anicteric
Respiratory: Non Labored Respirations
Cardiac: Regular Rhythm
GI: Soft, Tender (Mild epigastric/LUQ, negative Cox's), Obese and Other (Nonperitoneal)
Data Reviewed
-
CT Scan: Image Personally Visualized and interpreted and Report Reviewed by me
Ultrasound: Image Personally Visualized and interpreted and Report Reviewed by me
Labs: Labs Reviewed by me
Assessment / Plan
-
Patient is a 33 yo M p/w likely choledocholithiasis on chronic issues with constipation
The natural history pathophysiology of biliary and stone disease was discussed. Anatomy was reviewed utilizing pleural images. Workup thus far including labs, US, and CT scan imaging were reviewed. Labs notable for a cholestatic picture; unlikely
to be drug related (patiently currently on Depakote). Role of cholecystectomy was discussed. Of note, we discussed that he is likely to have a difficult cholecystectomy given his prior history of extensive intra-abdominal adhesions. We discussed
that his surgical management may be difficult to perform through an MIS approach and may necessitate an open procedure. GI consult noted. Further workup for choledocholithiasis with MRI pending. Timing and indications for cholecystectomy pending
above-noted workup. All questions answered.
-- MRI abdomen
-- Timing of cholecystectomy TBD
-- Abx: Zosyn
[2024-05-28] MEDS: CITROMA 300 ML PO (20:30)
[2024-05-28] MEDS: DEPAKOTE SPRINKLE 375 MG PO (23:34)
[2024-05-28] MEDS: ZOLOFT 25 MG PO (23:35)
[2024-05-28] MEDS: HEPARIN 5000 UNITS SC (23:42)
[2024-05-28] MEDS: TORADOL 10 MG IV (23:52)
[2024-05-29 02:59] VITALS: BP 123/81
--- NOTE | 2024-05-29 04:15 | PTCARENOTE ---
While straight cathing pt, pt coughed and catheter came out. While attempting to cath pt again a small amount of bright red blood came from penis. St cathed for 725 ccs clear yellow urine, no further blood observed. Pt verbalized feeling worried
about blood and states this 'hasn't happened in a while' emotional support provided, will pass along.
[2024-05-29] MEDS: ZOSYN 50 IV ×4 (05:37→23:01)
[2024-05-29] MEDS: SYNTHROID 88 MCG PO (05:37)
[2024-05-29 05:44] VITALS: BMI 33.8
[2024-05-29 06:56] VITALS: BP 120/78
[2024-05-29 07:04] LABS: AST (SGOT) 484 U/L (17-59); Albumin 3.9 g/dl (3.5-5.0); Alkaline Phosphatase 315 U/L (38-126); Blood Urea Nitrogen 6 mg/dl (9-20); Calcium 8.5 mg/dl (8.4-10.2); Carbon Dioxide 22 mmol/L (22-30); Chloride 100 mmol/L (98-107); Estimated Creatinine Clearance > 125 ml/min; Glucose 92 mg/dl (70-99); Potassium 3.8 mmol/L (3.5-5.1); Sodium 134 mmol/L (135-145); Total Bilirubin 5.7 mg/dl (0.2-1.3); Total Protein 6.5 g/dl (6.3-8.2); eGFR > 60.00
[2024-05-29 07:22] LABS: % Basophils 0.4 % (0-2); % Eosinophils 0.3 % (0-6); % Immature Granulocytes 3.6 % (0-0.5); % Lymphocytes 17.9 % (20.5-51.1); % Monocytes 12.2 % (1.7-9.3); % Neutrophils 65.6 % (42.2-75.2); ALT (SGPT) 1330 U/L (0-50); Absolute Immature Granulocytes 0.3 10^3/uL (0-0.05); Absolute Lymphocytes 1.3 10^3/uL (1.2-3.4); Absolute Monocytes 0.9 10^3/uL (0.1-0.6); Absolute Neutrophils 4.7 10^3/uL (1.4-6.5); Hematocrit 39.7 % (39.0-52.0); Hemoglobin 13.3 g/dL (13.0-18.0); Mean Corp Hgb Conc. 33.5 g/dL (33.0-37.0); Mean Corpuscular Hgb 28.9 pg (27.0-31.0); Mean Corpuscular Volume 86.1 fL (80.0-94.0); Nucleated Red Blood Cells % 0.7 % (-); Red Blood Cell Count 4.61 10^6/uL (4.70-6.10); White Blood Cell Count 7.1 10^3/uL (4.8-10.8)
[2024-05-29 07:48] LABS: INR 0.98; PT 13.3 Sec (11.4-14.6)
--- NOTE | 2024-05-29 07:50 | W.PN.GI.CBS2 ---
Addendum entered and electronically signed by YAHAIRA Ramos 05/29/24 12:10:
05/29 MRI with MRCP
Cholelithiasis with questionable findings to suggest acute cholecystitis in the appropriate clinical context.
Abrupt cut off of the distal common bile duct, suspicious for choledocholithiasis.
will review with Dr. gM-- tenative plan for ERCP +/- EUS 05/30-
pt, family, nursing staff, Dr. Talbert an Dr. Cavazos updated
all questions and risk/benefit review with patient/family
ok for clears today then NPO in AM
Addendum entered and electronically signed by Fanta Perez DO 05/29/24 08:18:
The patient was seen and examined by me independently in collaboration with the nurse practitioner.
Past medical history/social history/medications/allergies/family history reviewed.
Lab data and imaging data reviewed.
Patient seen in follow-up with Jodi Berry NP. He reports left flank/back pain resolved, however, now has a rectal discomfort. He reports tap water flush through cecostomy yesterday, per his regular bowel routine, with large amount of stool
evacuated, subsequently had some rectal discomfort, feels there is stool left. He has not administered any enemas per rectum in a few years.
Tbili slightly worse 3.5 --> 5.7, Dbili 2.4, AST 484, ALT 1330. MRCP pending.
A/P:
-f/u MRCP
-if rectal pain continues, plan for tap water enema per rectum (administered by mother)
Plan discussed with patient and RN at bedside.
Original Note:
Today's Communication / Plan
-
etiology of symptoms related to acute cholecystitis vs retained CBD stone vs other
plan for MRI to eval for choledocholithiasis
if + stone then will need ERCP-- per family may have some difficulty with positioning if ERCP need with hx kyphosis -- timing to be determined
cont abx
cont PPI daily
trend labs - bili higher and AST/ALT slightly lower
cont chronic management of cecostomy tube with 4 times per week flush 900ml some rectal pain reviewed with nursing staff, pt and family can do extra flush or enema as needed if pain persists
add Miralax 1/2 dose daily as taken at home prior to admission, s/p mag citrate 05/28 -- reviewed may have some increased constipation with current abdominal issues and narcotic use
appreciate surgical input
cont NPO pending MRI
family updated this am
Assessment / Plan
-
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
and vomiting. On admission noted with bili 3.4, AST 896, ALT 1557, alk phos 272. CT without contrast Gallstone with possible acute cholecystitis. Abdominal ultrasound recommended. Moderate fecal material throughout the colon. US noted with
Nonvisualization of the pancreas and spleen. Gallstone with gallbladder wall thickening suggesting acute cholecystitis. Clinical and laboratory correlation recommended. Stable with normal CBD 8mm.
Laboratory Tests
05/28/24 05/29/24
05:17 04:25
Total Bilirubin 3.5 H 5.7 H D
AST 817 H* 484 H
ALT 1471 H* 1330 H*
Alkaline Phosphatase 266 H 315 H
-epigastric/left sided pain
-increased LFT's
-CT/US with concern for acute cholecystitis
-hx chronic constipation with chronic cecostomy tube with flush 4 times per week- moderate stool on CT on admission
-rectal pain (per family periodic complaints of pain )
other med problems:
-spina bifida
-seizure disorder
-arnold chiari syndrome
-neurogenic bladder
PLAN:
etiology of symptoms related to acute cholecystitis vs retained CBD stone vs other
plan for MRI to eval for choledocholithiasis
if + stone then will need ERCP-- per family may have some difficulty with positioning if ERCP need with hx kyphosis -- timing to be determined
cont abx
cont PPI daily
trend labs - bili higher and AST/ALT slightly lower
cont chronic management of cecostomy tube with 4 times per week flush 900ml some rectal pain reviewed with nursing staff, pt and family can do extra flush or enema as needed if pain persists
add Miralax 1/2 dose daily as taken at home prior to admission, s/p mag citrate 05/28 -- reviewed may have some increased constipation with current abdominal issues and narcotic use
appreciate surgical input
cont NPO pending MRI
family updated this am
Subjective
Subjective
Date of Service: May 29, 2024
+ large stool with cecostomy drainage 05/28, NPO upper abdominal pain improved but c/o some rectal pain
Objective
Data Reviewed
Laboratory Data:
Laboratory Results
05/29/24 04:25
05/29/24 04:25
Laboratory Results
PT Cancelled 05/29/24 04:25
INR Cancelled 05/29/24 04:25
Total Bilirubin 5.7 mg/dl (0.2-1.3) H D 05/29/24 04:25
AST 484 U/L (17-59) H 05/29/24 04:25
ALT 1330 U/L (0-50) H* 05/29/24 04:25
Alkaline Phosphatase 315 U/L (38-126) H 05/29/24 04:25
Lipase 69 U/L (23-300) 05/28/24 00:44
Vital Signs and I&O:
Vital Signs
Temp Pulse Resp BP Pulse Ox
98.9 F 104 18 120/78 93
05/29/24 06:56 05/29/24 06:56 05/29/24 06:56 05/29/24 06:56 05/29/24 06:56
I&O
05/28/24 05/29/24 05/30/24
06:59 06:59 06:59
Intake Total 650 / 650
Output Total 925 / 925
Balance -275 / -275
Physical Exam
Physical Exam
HEENT: Other (minimal jaundice )
Cardiology: Normal Sinus Rhythm
Pulmonary: Clear
GI: Soft and Non Tender
Extremities: Other (LE weakness with spina bifida )
Neuro: Non Focal
--- NOTE | 2024-05-29 09:31 | W.PN.UPDATE ---
Update Note
Progress Note Update
Attempted to see pt, off floor for MRI
[2024-05-29] MEDS: VITAMIN D3 (cholecalciferol) 25 MCG PO (10:46)
[2024-05-29] MEDS: MIRALAX 8.5 GRAMS PO (10:46)
[2024-05-29] MEDS: HEPARIN 5000 UNITS SC ×3 (10:47→23:01)
[2024-05-29] MEDS: DEPAKOTE SPRINKLE 250 MG PO (10:47)
[2024-05-29] MEDS: DITROPAN 7.5 MG PO ×2 (10:47→20:18)
[2024-05-29] MEDS: PROTONIX IV 40 MG IV (10:47)
[2024-05-29] MEDS: NSS (PRESERVATIVE FREE) 10 ML IV (10:48)
[2024-05-29] MEDS: ZOLOFT 25 MG PO ×2 (10:48→20:19)
[2024-05-29] MEDS: NSS 1000 IV (10:49)
[2024-05-29 11:00] VITALS: BP 128/98
--- NOTE | 2024-05-29 11:05 | W.PN.GS2 ---
Today's Communication / Plan
-
GI eval for consideration of EUS/ERCP
Assessment / Plan
-
33M with choledocholithiasis
AFVSS, pain resolved
No leukocytosis, Tbili rising
US with 3.3cm shadowing gallstone, 7mm GBWT, no PCF, CBD 8mm
CT with distended gb with radiopaque stone, non con scan limited for eval of stranding
MRI suspicious for choledocholithiasis, per radiology read c/w ACC however he has no pain and no ttp on exam
Plan:
Rec GI eval for consideration of EUS/ERCP
We discussed the rationale for CCY in this setting, as a prophylactic measure, he is unsure if he wishes to proceed at this time but he is considering it
All other care as per primary team
GS will follow
Subjective Data
-
Date of Service: May 29, 2024
AFVSS, denies pain, denies nausea
Objective Data
-
Intake and Output
05/28/24 05/29/24 05/30/24
06:59 06:59 06:59
Intake Total 650 / 650
Output Total 925 / 925 525 / 525
Balance -275 / -275 -525 / -525
Intake:
Oral fluids 100 / 100
IV fluids (Total) 450 / 450
IV piggybacks 100 / 100
Output:
Urine, Voided 525 / 525
Straight cath output 925 / 925
Vital Signs
Temp Pulse Resp BP Pulse Ox
98.9 F 104 18 120/78 93
05/29/24 06:56 05/29/24 06:56 05/29/24 06:56 05/29/24 06:56 05/29/24 06:56
Lab Results
05/29/24 04:25
05/29/24 04:25
Calcium 8.5 mg/dl (8.4-10.2) 05/29/24 04:25
Total Bilirubin 5.7 mg/dl (0.2-1.3) H D 05/29/24 04:25
Direct Bilirubin 2.4 mg/dl (0.0-0.4) H 05/28/24 05:17
AST 484 U/L (17-59) H 05/29/24 04:25
ALT 1330 U/L (0-50) H* 05/29/24 04:25
Alkaline Phosphatase 315 U/L (38-126) H 05/29/24 04:25
Total Protein 6.5 g/dl (6.3-8.2) 05/29/24 04:25
Albumin 3.9 g/dl (3.5-5.0) 05/29/24 04:25
Physical Exam
-
Gen: NAD
Abd: soft, nt
Patient has a keyes catheter: No
Patient has a central line: No
--- NOTE | 2024-05-29 12:27 | W.PN.HOSP.TC ---
Today's Communication/Plan
-
ERCP tomorrow
Assessment / Plan
Assessment / Plan
33-year-old male with abdominal pain
Ultrasound of the abdomen 05/28/2024-nonvisualization of the pancreas and spleen. Gallstone with gallbladder wall thickening suggestive of acute cholecystitis
CT abdomen and pelvis-gallstone with possible acute cholecystitis moderate fecal material throughout the colon
Patient is awake and alert denies any right upper quadrant pain. He still has mild left upper quadrant pain
Cardiovascular system S1-S2 appreciated
Chest clear to auscultation
Abdomen mild discomfort to palpation left side no guarding or rigidity
Right cecostomy tube
MRI/MRCP-cholelithiasis with questionable findings to suggest acute cholecystitis. Abrupt cut off of the distal CBD suspicious for choledocholithiasis.
# Elevated LFTs with hyperbilirubinemia
Choledocholithiasis
Postprandial pain nausea
No right upper quadrant pain. Lipase level is normal
Continue IV Zosyn
Needs ERCP-GI planning for tomorrow
Needs cholecystectomy after that
Surgery evaluation appreciated
GI evaluation requested
Hepatitis panel negative
# Spina bifida/Chiari II malformation
# Seizure disorder-continue Depakote 250 mg in the morning and 370 5 at night
# Hypothyroidism-continue levothyroxine
# Neurogenic bladder With self-catheterization 4 to 5 times a day
# History of PHP PROGRAMMER shunt with 6 revisions most recent in 2004
# Chronic constipation-continue MiraLAX when taking p.o.
Has cecostomy in 2013 and tube for administration of enemas (tap water) four times weekly.
Patient had bowel movement yesterday had some rectal pain after that but that has resolved since then.
# History of kyphosis /scoliosis /lumbar fusion surgery
# DVT prophylaxis-subcutaneous heparin
# Full code
Discussed with surgeon
D/W GI
D/w MOM AT BED SIDE
Discussed with nursing
Anticipated Discharge: > 48 hours
Subjective/Interval History
-
Date of Service: May 29, 2024
Objective Data
-
Labs:
Laboratory Results
05/29/24 05/29/24
04:25 07:27
WBC 7.1
Hgb 13.3
Hct 39.7
Plt Count
PT Cancelled 13.3
INR Cancelled 0.98
Sodium 134 L
Potassium 3.8
Chloride 100
Carbon Dioxide 22
BUN 6 L
Creatinine 0.4 L
Glucose 92
Calcium 8.5
Total Bilirubin 5.7 H D
AST 484 H
ALT 1330 H*
Alkaline Phosphatase 315 H
Vital Signs:
Vital Signs
Temp Pulse Resp BP Pulse Ox
98.2 F 105 16 128/98 94
05/29/24 11:00 05/29/24 11:00 05/29/24 11:00 05/29/24 11:00 05/29/24 11:00
I&O
05/28/24 05/29/24 05/30/24
06:59 06:59 06:59
Intake Total 650 / 650
Output Total 925 / 925 525 / 525
Balance -275 / -275 -525 / -525
--- NOTE | 2024-05-29 14:36 | CM ---
Adm dx - cholecystitis. PMH - Spina bifida, s/p AV shunt, seizure disorder
Met with pt and his mother at bedside
Pt reports he lives with his parents in a 2 story home - has ramp entrance into home
Some assist with dressing needed, feeds self, uses wheel chair for mobility - mother is primary scoring machine operator
DME - ramp, stair glide, wheel chair, leg braces
Denies past SNF/HH
Has ride at discharge
PCP - Salomón Owusu
Pharm - [facility]
For ERCP tomorrow
Plan - anticipate home no needs vs w/VN
[2024-05-29 15:09] VITALS: BP 133/85
[2024-05-29] MEDS: TORADOL 10 MG IV (17:53)
[2024-05-29 18:59] VITALS: BP 122/82
[2024-05-29] MEDS: DEPAKOTE SPRINKLE 375 MG PO (20:20)
[2024-05-29 23:03] VITALS: BP 108/76
[2024-05-30] VITALS (9 sets, daily range): BP systolic 106–147; BP diastolic 61–100; BMI 34.4
[2024-05-30] MEDS: TORADOL 10 MG IV (00:53)
--- NOTE | 2024-05-30 01:22 | PTCARENOTE ---
Pt complaining of some left lower abd discomfort. PRN pain medication administered as ordered. Bladder scanned for 388ml. St cath performed, 400ml sukumar urine drained. Pt positioned per comfort. IVF infusing as ordered. Will continue to monitor.
[2024-05-30] MEDS: ZOSYN 50 IV ×4 (05:33→23:46)
[2024-05-30] MEDS: NSS 1000 IV (05:33)
[2024-05-30] MEDS: SYNTHROID 88 MCG PO (05:35)
[2024-05-30 06:33] LABS: Hematocrit 41.2 % (39.0-52.0); Hemoglobin 13.4 g/dL (13.0-18.0); Mean Corp Hgb Conc. 32.5 g/dL (33.0-37.0); Mean Corpuscular Hgb 28.8 pg (27.0-31.0); Mean Corpuscular Volume 88.4 fL (80.0-94.0); Mean Platelet Volume 10.4 fL (7.4-10.4); Platelet Count 266 10^3/uL (130-400); Red Blood Cell Count 4.66 10^6/uL (4.70-6.10); Red Cell Dist. Width 15.9 % (11.5-14.5); White Blood Cell Count 6.3 10^3/uL (4.8-10.8)
[2024-05-30 07:09] LABS: AST (SGOT) 333 U/L (17-59); Albumin 3.5 g/dl (3.5-5.0); Alkaline Phosphatase 389 U/L (38-126); Blood Urea Nitrogen 7 mg/dl (9-20); Calcium 8.3 mg/dl (8.4-10.2); Carbon Dioxide 24 mmol/L (22-30); Chloride 103 mmol/L (98-107); Estimated Creatinine Clearance > 125 ml/min; Glucose 92 mg/dl (70-99); Potassium 3.7 mmol/L (3.5-5.1); Sodium 138 mmol/L (135-145); Total Bilirubin 5.8 mg/dl (0.2-1.3); Total Protein 6.1 g/dl (6.3-8.2); eGFR > 60.00
[2024-05-30 07:18] LABS: ALT (SGPT) 974 U/L (0-50)
[2024-05-30] MEDS: MIRALAX 8.5 GRAMS PO (08:32)
[2024-05-30] MEDS: HEPARIN 5000 UNITS SC ×3 (08:33→23:55)
[2024-05-30] MEDS: PROTONIX IV 40 MG IV (08:33)
[2024-05-30] MEDS: NSS (PRESERVATIVE FREE) 10 ML IV (08:33)
[2024-05-30] MEDS: DEPAKOTE SPRINKLE 250 MG PO (08:35)
[2024-05-30] MEDS: ZOLOFT 25 MG PO ×2 (08:35→20:29)
[2024-05-30] MEDS: VITAMIN D3 (cholecalciferol) 25 MCG PO (08:35)
[2024-05-30] MEDS: DITROPAN 7.5 MG PO ×2 (08:35→20:28)
--- NOTE | 2024-05-30 08:45 | W.PN.GS2 ---
Addendum entered and electronically signed by Goran Garcia MD 05/30/24 11:24:
Patient seen in follow-up with his mother present.
We discussed his past surgical history including challenging laparotomy for cecostomy tube which apparently was a an 8 to 9-hour procedure with extensive adhesiolysis.
Patient's mother with concerns regarding the potential complexity of surgery.
We discussed that certainly this may be a challenging operation given his underlying anatomy with spina bifida and past abdominal surgical history.
There would be an increased risk of conversion to open as well as expectation for increased operative time and adhesiolysis for exposure. Still would start with attempted laparoscopic exposure as if able to adequately lyse adhesions to access area
of gallbladder given its deep and subcostal location on radiographic imaging would be advantageous for exposure for minimally invasive versus open surgery. While certainly Josh gallbladder surgery's will be of increased surgical
complexity/challenge we discussed that it is not of prohibitive risk. As an alternative I also offered the patient's mother second surgical opinion at a tertiary care center but her preference is to continue with care locally which I advised her we
are comfortable with as well.
We also discussed the high likelihood of future gallstone related issues whether it is biliary colic/acute cholecystitis or possibility of choledocholithiasis. It is possible that this current hospitalization is more due to cholecystitis and a
Mirizzi type phenomena as well in addition to choledocholithiasis.
Discussed with Dr. Pruett, GI service. At ERCP today requested he attempt occlusive cholangiogram to evaluate for cystic duct patency/opacification of gallbladder which will help us further discuss on potential timing of cholecystectomy versus
consideration of initial expectant management or interval cholecystectomy.
Patient has been tentatively added onto the OR schedule for Monday,
However if ERCP - cholangiogram opacifies gallbladder/cystic duct may decide on interval cholecystectomy rather than proceeding at this index hospitalization pending futher discussions with patient and his mother.
Original Note:
Today's Communication / Plan
-
`
Assessment / Plan
-
Assessment: 33M with presenting with obstructive jaundice due to choledocholithiasis; also cholelithiasis.
AFVSS, pain resolved
No leukocytosis
Bili remains elevated at 5.8, slight improvement in AST and ALT.
US with 3.3cm shadowing gallstone, 7mm GBWT, no PCF, CBD 8mm
CT with distended gb with radiopaque stone, non con scan limited for eval of stranding
MRI suspicious for choledocholithiasis
Plan: Patient for ERCP with GI today
We again reviewed indications for cholecystectomy and timing. Would anticipate proceeding with laparoscopic cholecystectomy tomorrow, he has been tentatively added onto the OR schedule for 05/31/2024.
Will discuss further with patient's mother today
Subjective Data
-
Date of Service: May 30, 2024
Patient seen and examined.
States he is overall feeling well and improved since ER presentation.
No recurrent abdominal pains.
Awaiting ERCP
Objective Data
-
Intake and Output
05/29/24 05/30/24 05/31/24
06:59 06:59 06:59
Intake Total 650 / 650 1300 / 1300
Output Total 925 / 925 2300 / 2300
Balance -275 / -275 -1000 / -1000
Intake:
Oral fluids 100 / 100 250 / 250
IV fluids (Total) 450 / 450 900 / 900
IV piggybacks 100 / 100 150 / 150
Output:
Urine, Rueda 550 / 550
Urine, Voided 525 / 525
Straight cath output 925 / 925 1225 / 1225
Vital Signs
Temp Pulse Resp BP Pulse Ox
97.9 F 85 16 139/87 95
05/30/24 07:00 05/30/24 07:00 05/30/24 07:00 05/30/24 07:00 05/30/24 07:00
Lab Results
05/30/24 04:24
05/30/24 04:24
Calcium 8.3 mg/dl (8.4-10.2) L 05/30/24 04:24
Total Bilirubin 5.8 mg/dl (0.2-1.3) H 05/30/24 04:24
Direct Bilirubin 2.4 mg/dl (0.0-0.4) H 05/28/24 05:17
AST 333 U/L (17-59) H 05/30/24 04:24
ALT 974 U/L (0-50) H* 05/30/24 04:24
Alkaline Phosphatase 389 U/L (38-126) H 05/30/24 04:24
Total Protein 6.1 g/dl (6.3-8.2) L 05/30/24 04:24
Albumin 3.5 g/dl (3.5-5.0) 05/30/24 04:24
Physical Exam
-
NAD AAOx3
ABD: Soft, nondistended, no significant tenderness on palpation even in the right upper quadrant
--- NOTE | 2024-05-30 10:52 | W.PN.HOSP.TC ---
Today's Communication/Plan
-
ERCP
Assessment / Plan
Assessment / Plan
33-year-old male with abdominal pain
Ultrasound of the abdomen 05/28/2024-nonvisualization of the pancreas and spleen. Gallstone with gallbladder wall thickening suggestive of acute cholecystitis
CT abdomen and pelvis-gallstone with possible acute cholecystitis moderate fecal material throughout the colon
Patient is awake and alert denies any right upper quadrant pain.
Cardiovascular system S1-S2 appreciated
Chest clear to auscultation
Right cecostomy tube
MRI/MRCP-cholelithiasis with questionable findings to suggest acute cholecystitis. Abrupt cut off of the distal CBD suspicious for choledocholithiasis.
# Elevated LFTs with hyperbilirubinemia
Choledocholithiasis with Postprandial pain nausea.No right upper quadrant pain. Lipase level is normal
Continue IV Zosyn
Needs ERCP-GI planning for today
Needs cholecystectomy after that
Surgery and GI following.
Hepatitis panel negative
# Spina bifida/Chiari II malformation
# Seizure disorder-continue Depakote 250 mg in the morning and 370 mg at night
# Hypothyroidism-continue levothyroxine
# Neurogenic bladder With self-catheterization 4 to 5 times a day( Mom helps )
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
# Chronic constipation-continue MiraLAX when taking p.o.
Has cecostomy in 2012 and tube for administration of enemas (tap water) four times weekly.
Patient had bowel movement 05/28/24.
# History of kyphosis /scoliosis /lumbar fusion surgery
# DVT prophylaxis-subcutaneous heparin
# Full code
Discussed with mom at bed side
Patient should get out to his wheelchair and out of bed
Anticipated Discharge: > 48 hours
Subjective/Interval History
-
Date of Service: May 30, 2024
Objective Data
-
Labs:
Laboratory Results
05/30/24
04:24
WBC 6.3
Hgb 13.4
Hct 41.2
Plt Count 266
Sodium 138
Potassium 3.7
Chloride 103
Carbon Dioxide 24
BUN 7 L
Creatinine 0.4 L
Glucose 92
Calcium 8.3 L
Total Bilirubin 5.8 H
AST 333 H
ALT 974 H*
Alkaline Phosphatase 389 H
Vital Signs:
Vital Signs
Temp Pulse Resp BP Pulse Ox
97.9 F 85 16 139/87 95
05/30/24 07:00 05/30/24 07:00 05/30/24 07:00 05/30/24 07:00 05/30/24 08:00
I&O
05/29/24 05/30/24 05/31/24
06:59 06:59 06:59
Intake Total 650 / 650 1300 / 1300
Output Total 925 / 925 2300 / 2300
Balance -275 / -275 -1000 / -1000
--- NOTE | 2024-05-30 11:14 | CM ---
Chart reviewed
For ERCP today
Poss lap gayathri tomorrow pending ERCP
CM will follow for discharge needs
Plan - anticipate home no needs vs w/VN based on needs
[2024-05-30] MEDS: DEPAKOTE SPRINKLE 375 MG PO (20:31)
[2024-05-31] VITALS (15 sets, daily range): BP systolic 40–147; BP diastolic 55–98; BMI 33.9
[2024-05-31] MEDS: ZOSYN 50 IV ×4 (05:18→23:56)
[2024-05-31] MEDS: SYNTHROID 88 MCG PO (05:19)
--- NOTE | 2024-05-31 05:45 | PTCARENOTE ---
Pt NPO since midnight, had 50 ml of Zosyn & 50 ML of fluid after Mom SC her son. BS showed pt retaining 740mL, SC got 70 mL of urine out. BS again pt appears to be retaining 688 mL. Pt denies feeling of fullness he normally has when his bladder is
full. Pt's liver enzymes have been elevated, but trending down. The pt's sclera is yellow as is his skin. Pt's belly is soft. Called [employer] with all findings, she said she will pass it on to [facility].
[2024-05-31 07:06] LABS: % Basophils 0.2 % (0-2); % Immature Granulocytes 3.1 % (0-0.5); % Lymphocytes 15.5 % (20.5-51.1); % Monocytes 11.3 % (1.7-9.3); % Neutrophils 69.9 % (42.2-75.2); Absolute Immature Granulocytes 0.3 10^3/uL (0-0.05); Absolute Lymphocytes 1.5 10^3/uL (1.2-3.4); Absolute Monocytes 1.1 10^3/uL (0.1-0.6); Absolute Neutrophils 6.9 10^3/uL (1.4-6.5); Hematocrit 39.5 % (39.0-52.0); Hemoglobin 13.2 g/dL (13.0-18.0); Mean Corp Hgb Conc. 33.4 g/dL (33.0-37.0); Mean Corpuscular Hgb 28.8 pg (27.0-31.0); Mean Corpuscular Volume 86.2 fL (80.0-94.0); Mean Platelet Volume 9.7 fL (7.4-10.4); Nucleated Red Blood Cells % 0.8 % (-); Platelet Count 253 10^3/uL (130-400); Red Blood Cell Count 4.58 10^6/uL (4.70-6.10); White Blood Cell Count 9.8 10^3/uL (4.8-10.8)
[2024-05-31 07:36] LABS: ALT (SGPT) 738 U/L (0-50); AST (SGOT) 202 U/L (17-59); Albumin 3.8 g/dl (3.5-5.0); Alkaline Phosphatase 424 U/L (38-126); Blood Urea Nitrogen 10 mg/dl (9-20); Calcium 8.9 mg/dl (8.4-10.2); Carbon Dioxide 24 mmol/L (22-30); Chloride 100 mmol/L (98-107); Estimated Creatinine Clearance > 125 ml/min; Glucose 110 mg/dl (70-99); Potassium 3.7 mmol/L (3.5-5.1); Sodium 137 mmol/L (135-145); Total Protein 6.5 g/dl (6.3-8.2); eGFR > 60.00
[2024-05-31] MEDS: DEPAKOTE SPRINKLE 250 MG PO (10:16)
[2024-05-31] MEDS: ZOLOFT 25 MG PO ×2 (10:17→20:45)
[2024-05-31] MEDS: DITROPAN PO (10:19)
[2024-05-31] MEDS: VITAMIN D3 (cholecalciferol) PO (10:19)
[2024-05-31] MEDS: MIRALAX PO (10:19)
[2024-05-31] MEDS: HEPARIN SC ×2 (10:19→16:47)
[2024-05-31] MEDS: PROTONIX IV 40 MG IV (10:20)
[2024-05-31] MEDS: NSS (PRESERVATIVE FREE) 10 ML IV (10:20)
--- NOTE | 2024-05-31 10:41 | W.PN.HOSP.TC ---
Today's Communication/Plan
-
Patient and mom want to discuss with surgery regarding the timing of cholecystectomy
Continue IV antibiotics and changed to p.o. Augmentin at discharge
Advance diet if no surgery planned. Currently n.p.o.
Assessment / Plan
Assessment / Plan
33-year-old male with abdominal pain
Ultrasound of the abdomen 05/28/2024-nonvisualization of the pancreas and spleen. Gallstone with gallbladder wall thickening suggestive of acute cholecystitis
CT abdomen and pelvis-gallstone with possible acute cholecystitis moderate fecal material throughout the colon
Patient is awake and alert denies any right upper quadrant pain.
Cardiovascular system S1-S2 appreciated
Chest clear to auscultation
Right cecostomy tube
MRI/MRCP-cholelithiasis with questionable findings to suggest acute cholecystitis. Abrupt cut off of the distal CBD suspicious for choledocholithiasis.
# Elevated LFTs with hyperbilirubinemia
Choledocholithiasis with Postprandial pain nausea.No right upper quadrant pain. Lipase level is normal
Continue IV Zosyn
EUS/ERCP by Dr. Mg 05/30/2024-biliary sphincterotomy, biliary tree was swept with sludge and pus found 1 plastic stent into the gallbladder, 1 plastic stent into the CBD placed
Needs cholecystectomy -timing to be determined-patient and mom not keen on getting it done today
LFTs trending down
# Spina bifida/Chiari II malformation
# Seizure disorder-continue Depakote 250 mg in the morning and 370 mg at night
# Hypothyroidism-continue levothyroxine
# Neurogenic bladder With self-catheterization 4 to 5 times a day( Mom helps )
# History of BLOCKER METAL BASE shunt with 6 revisions most recent in 2004
# Chronic constipation-continue MiraLAX when taking p.o.
Has cecostomy in 2012 and tube for administration of enemas (tap water) four times weekly.
Patient had bowel movement 05/30/24.
# History of kyphosis /scoliosis /lumbar fusion surgery
# DVT prophylaxis-subcutaneous heparin
# Full code
Discussed with mom at bed side
Patient should get out to his wheelchair and out of bed
Sent a message to surgeon
Discussed with nursing
Anticipated Discharge: Within 24 hours
Subjective/Interval History
-
Date of Service: May 31, 2024
Objective Data
-
Labs:
Laboratory Results
05/31/24
06:55
WBC 9.8
Hgb 13.2
Hct 39.5
Plt Count 253
Sodium 137
Potassium 3.7
Chloride 100
Carbon Dioxide 24
BUN 10
Creatinine 0.5 L
Glucose 110 H
Calcium 8.9
Total Bilirubin 8.0 H
AST 202 H
ALT 738 H*
Alkaline Phosphatase 424 H
Vital Signs:
Vital Signs
Temp Pulse Resp BP Pulse Ox
97.4 F 87 16 114/69 97
05/31/24 06:50 05/31/24 06:50 05/31/24 06:50 05/31/24 06:50 05/31/24 06:50
I&O
05/30/24 05/31/24 06/01/24
06:59 06:59 06:59
Intake Total 1300 / 1300 640 / 640
Output Total 2300 / 2300 1785 / 1785
Balance -1000 / -1000 -1145 / -1145
--- NOTE | 2024-05-31 11:33 | W.PN.SURGUPD ---
Surgical Update
Surgical Update
Patient seen in follow-up earlier this a.m. His mother was at bedside. We discussed treatment options going forward as well as yesterday's EUS/ERCP results. Dr. Mg has positioned 2 stents. 1, bile duct stent the other going through the cystic
duct and into the gallbladder.
Patient states he feels well this a.m. He denies any abdominal pain. He denies nausea. He is a bit nervous regarding potential for surgery but otherwise feeling well.
Lengthy discussions with the patient and his mother regarding indications for cholecystectomy. Based on ERCP EUS this may be more of a Mirizzi type phenomena causing the biliary obstruction then isolated choledocholithiasis. While there was sludge
and thick bile extracted from the common bile duct there were stones within the cystic duct more distally and a bit of atypical cystic duct anatomy in that the cystic duct insertion is low and just proximal to the ampulla.
After our discussions the patient and his mother wish to proceed with cholecystectomy. No further medical or preoperative surgical optimization required. They are comfortable to proceed with surgery today. Laparoscopic cholecystectomy with
possible intraoperative cholangiogram, possible open was reviewed in detail. Specifically we have discussed the potential for increased complexity of this operative procedure due to the patient's history of spina bifida and previous laparotomies.
This may certainly increase operative time, potential for conversion to open surgery as well as risk of iatrogenic injury to surrounding viscera as it may relate to adhesiolysis for gallbladder exposure. We further discussed the typical benefits
and risks of cholecystectomy such as but not limited to bleeding requiring transfusion, infectious and related complications, bile leak,, bile duct injury, postcholecystectomy bowel/digestive changes. We discussed the potential for postoperative
surgical drains. We reviewed the typical postoperative recovery pending operative findings.
Any of the patient's or his mother's concerns or questions were confirmed to be fully addressed and informed consent was obtained.
Patient is on the OR schedule today for cholecystectomy
--- NOTE | 2024-05-31 11:37 | W.SUR.PREOP ---
Pre-Operative Surgical Note
-
I have examined this patient prior to the performance of the scheduled procedure.
The patient's condition is unchanged from the time of the current History and
Physical and the patient is able to undergo the scheduled procedure.
--- NOTE | 2024-05-31 14:18 | CM ---
Chart reviewed
ERCP yesterday
Pt for cholecystectomy today
CM will follow for discharge needs
Plan - anticipate home no needs when medically stable
--- NOTE | 2024-05-31 16:10 | W.IMMPOSTOP ---
Addendum entered and electronically signed by Goran Garcia MD 05/31/24 16:47:
#[id number]
Original Note:
Surgical Immed Post Op Note
-
Primary Surgeon: Goran Garcia
Assisting Surgeon: Jodi Sutton PA-C
Pre-op Diagnosis: Acute calculus cholecystitis
Post-op Diagnosis: Acute on chronic calculus cholecystitis; extensive adhesions
Procedure Performed: Laparoscopic lysis of adhesions encompassing 90 minutes of operative time
Laparoscopic cholecystectomy
Anesthesia Type: GETA +0.25% Marcaine with epi
Specimen / Cultures: Gallbladder
Estimated Blood Loss: 100 mL
Complications: None immediate
Operative Findings: Extensive adhesions to abdominal wall, liver and gallbladder predominantly involving small bowel and small bowel mesentery. First 90 minutes of operative time was all adhesiolysis to begin exposing gallbladder. Subsequent dome
down cholecystectomy. Chronically fibrotic and thickened gallbladder with large gallstone impacted in the body/infundibular junction. Cystic duct stent identified and removed. 2 gallstones milked out of cystic duct. Cystic duct controlled with
Endo TYRESE ramirez 30 mm articulating stapler.
Drains: 19 Laurent right upper quadrant and subhepatic space.
The assistance of Jodi Sutton PA-C was required due to the complexity of the procedure. During the procedure Jodi Sutton PA-C assisted with tissue retraction and aid in exposure for cholecystectomy and lysis of adhesions, managing the
laparoscope for visualization, and closure of the incision sites.
Patient's mother and father updated postoperatively back in patient's room.
Plan: Follow JOSR outputs
Clear liquids monitor for risk of ileus postoperatively
Repeat LFTs in a.m.
Analgesics and antiemetics as needed
IV fluid hydration
Continue Zosyn for 48 to 72 hours postop.
Will follow.
[2024-05-31] MEDS: NSS 1000 IV (17:43)
[2024-05-31] MEDS: TORADOL 10 MG IV (17:51)
[2024-05-31] MEDS: DITROPAN 7.5 MG PO (20:44)
[2024-05-31] MEDS: DEPAKOTE SPRINKLE 375 MG PO (20:45)
[2024-06-01] MEDS: NSS 1000 IV ×2 (02:18→12:48)
[2024-06-01 03:00] VITALS: BP 100/49
[2024-06-01] MEDS: SYNTHROID 88 MCG PO (05:43)
[2024-06-01] MEDS: ZOSYN 50 IV ×3 (05:43→18:28)
--- NOTE | 2024-06-01 05:59 | W.PN.HOSP.TC ---
Today's Communication/Plan
-
pain control
diet as per surgery
cont abx
monitor LFTs
Assessment / Plan
Assessment / Plan
Physical Exam
General: Not acute distress resting comfortably in bed.
HEENT: Normocephalic Atraumatic moist oral mucosa
Pulm: Clear to auscultation b/l
Cardio: S1-S2 no murmurs rubs gallops
Abd: soft mild tenderness bowel sounds present, JOSR drain present
Neuro: Awake Alert Conversant Coherent
Psych: Calm
33M Spina Bifida wheelchair bound SIDE LASTER TACK shunt sz chronic constipation/cecostomy hypothyroidism here for acute on chronic calculus cholecystitis.
Ultrasound of the abdomen 05/28/2024-nonvisualization of the pancreas and spleen. Gallstone with gallbladder wall thickening suggestive of acute cholecystitis
CT abdomen and pelvis-gallstone with possible acute cholecystitis moderate fecal material throughout the colon
MRI/MRCP-cholelithiasis with questionable findings to suggest acute cholecystitis. Abrupt cut off of the distal CBD suspicious for choledocholithiasis.
# Elevated LFTs with hyperbilirubinemia
Choledocholithiasis with Postprandial pain nausea
Continue IV Zosyn
EUS/ERCP by Dr. Mg 05/30/2024-biliary sphincterotomy, biliary tree was swept with sludge and pus found 1 plastic stent into the gallbladder, 1 plastic stent into the CBD placed
Surgery eval appreciated Lap Aicha w/ Lysis of Adhesions performed 05/31/24
LFTs trending down
# Spina bifida/Chiari II malformation
# Seizure disorder-continue Depakote 250 mg in the morning and 370 mg at night
# Hypothyroidism-continue levothyroxine
# Neurogenic bladder With self-catheterization 4 to 5 times a day( Mom helps )
# History of SIDE LASTER TACK shunt with 6 revisions most recent in 2004
# Chronic constipation-continue MiraLAX when taking p.o.
Has cecostomy in 2012 and tube for administration of enemas (tap water) four times weekly.
Last recorded bowel movement 05/31/24
# History of kyphosis /scoliosis /lumbar fusion surgery
# DVT prophylaxis-subcutaneous heparin
# Full code
I spent a total of 50 minutes with the patient or on the floor. More than 50% of this time involved counseling and coordination of care.
Anticipated Discharge: 24 - 48 hours
Subjective/Interval History
-
Date of Service: June 01, 2024
No acute distress resting comfortably in bed. Reports overall improvement in symptoms, notes occasional intermittent RUQ pain also improving. Reports bowel movements, flatus, tolerating diet.
Objective Data
-
Labs:
Laboratory Results
06/01/24
06:00
WBC Pending
Hgb Pending
Hct Pending
Plt Count Pending
Sodium Pending
Potassium Pending
Chloride Pending
Carbon Dioxide Pending
BUN Pending
Creatinine Pending
Glucose Pending
Calcium Pending
Total Bilirubin Pending
AST Pending
ALT Pending
Alkaline Phosphatase Pending
Vital Signs:
Vital Signs
Temp Pulse Resp BP Pulse Ox
98.4 F 89 18 100/49 96
06/01/24 03:00 06/01/24 03:00 06/01/24 03:00 06/01/24 03:00 06/01/24 03:00
I&O
05/30/24 05/31/24 06/01/24
06:59 06:59 06:59
Intake Total 1300 / 1300 640 / 640 170 / 170
Output Total 2300 / 2300 1785 / 1785 60 / 60
Balance -1000 / -1000 -1145 / -1145 110 / 110
[2024-06-01 06:00] VITALS: BMI 33.9
[2024-06-01 06:55] VITALS: BP 101/65
--- NOTE | 2024-06-01 08:11 | W.PN.GI.CBS2 ---
Today's Communication / Plan
-
Doing well POD#1
Advance diet per Surgery
Labs pending this am
Will need eventual f/u to remove CBD stent with Dr Mg
Assessment / Plan
-
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
and vomiting. On admission noted with bili 3.4, AST 896, ALT 1557, alk phos 272. CT without contrast Gallstone with possible acute cholecystitis. Abdominal ultrasound recommended. Moderate fecal material throughout the colon. US noted with
Nonvisualization of the pancreas and spleen. Gallstone with gallbladder wall thickening suggesting acute cholecystitis. Clinical and laboratory correlation recommended. Stable with normal CBD 8mm.
Impression:
Cholelithiasis, choledocholithiasis, cystic duct stone
s/p ERCP/CBD stent/cystic duct stent 05/30
s/p lap gayathri/JOSE 05/31 with retrieval of 2 gallstones from cystic duct
-epigastric/left sided pain
-increased LFT's
-CT/US with concern for acute cholecystitis
-hx chronic constipation with chronic cecostomy tube with flush 4 times per week- moderate stool on CT on admission
-rectal pain (per family periodic complaints of pain )
other med problems:
-spina bifida
-seizure disorder
-arnold chiari syndrome
-neurogenic bladder
Subjective
Subjective
Date of Service: June 01, 2024
Reports minimal incisional pain. No other complaints
Objective
Data Reviewed
Laboratory Data:
Laboratory Results
PT 13.3 Sec (11.4-14.6) 05/29/24 07:27
INR 0.98 05/29/24 07:27
Total Bilirubin 8.0 mg/dl (0.2-1.3) H 05/31/24 06:55
AST 202 U/L (17-59) H 05/31/24 06:55
ALT 738 U/L (0-50) H* 05/31/24 06:55
Alkaline Phosphatase 424 U/L (38-126) H 05/31/24 06:55
Lipase 69 U/L (23-300) 05/28/24 00:44
Vital Signs and I&O:
Vital Signs
Temp Pulse Resp BP Pulse Ox
98.6 F 100 16 101/65 100
06/01/24 06:55 06/01/24 06:55 06/01/24 06:55 06/01/24 06:55 06/01/24 06:55
I&O
05/31/24 06/01/24 06/02/24
06:59 06:59 06:59
Intake Total 640 / 640 2125 / 2125
Output Total 1785 / 1785 1110 / 1110
Balance -1145 / -1145 1015 / 1015
Physical Exam
Physical Exam
GI: Soft, Non Distended and Tender (minimal RUQ pain. Bandage dry)
[2024-06-01 09:04] LABS: % Basophils 0.3 % (0-2); % Eosinophils 0.1 % (0-6); % Immature Granulocytes 2.1 % (0-0.5); % Lymphocytes 12.9 % (20.5-51.1); % Monocytes 10.7 % (1.7-9.3); % Neutrophils 73.9 % (42.2-75.2); Absolute Immature Granulocytes 0.2 10^3/uL (0-0.05); Absolute Lymphocytes 1.4 10^3/uL (1.2-3.4); Absolute Monocytes 1.1 10^3/uL (0.1-0.6); Absolute Neutrophils 7.7 10^3/uL (1.4-6.5); Hematocrit 34.6 % (39.0-52.0); Hemoglobin 11.5 g/dL (13.0-18.0); Mean Corp Hgb Conc. 33.2 g/dL (33.0-37.0); Mean Corpuscular Hgb 28.8 pg (27.0-31.0); Mean Corpuscular Volume 86.5 fL (80.0-94.0); Mean Platelet Volume 10.1 fL (7.4-10.4); Nucleated Red Blood Cells % 0 % (-); Platelet Count 223 10^3/uL (130-400); White Blood Cell Count 10.4 10^3/uL (4.8-10.8)
[2024-06-01] MEDS: DEPAKOTE SPRINKLE 250 MG PO (09:17)
[2024-06-01] MEDS: VITAMIN D3 (cholecalciferol) 25 MCG PO (09:18)
[2024-06-01] MEDS: ZOLOFT 25 MG PO ×2 (09:18→20:21)
[2024-06-01] MEDS: DITROPAN 7.5 MG PO ×2 (09:18→20:20)
[2024-06-01] MEDS: HEPARIN 5000 UNITS SC (09:19)
[2024-06-01] MEDS: NSS (PRESERVATIVE FREE) 10 ML IV (09:22)
[2024-06-01] MEDS: PROTONIX IV 40 MG IV (09:22)
[2024-06-01] MEDS: MIRALAX PO (09:23)
[2024-06-01 09:28] LABS: ALT (SGPT) 456 U/L (0-50); AST (SGOT) 130 U/L (17-59); Albumin 2.9 g/dl (3.5-5.0); Alkaline Phosphatase 301 U/L (38-126); Blood Urea Nitrogen 8 mg/dl (9-20); Calcium 7.5 mg/dl (8.4-10.2); Carbon Dioxide 26 mmol/L (22-30); Chloride 103 mmol/L (98-107); Estimated Creatinine Clearance > 125 ml/min; Glucose 91 mg/dl (70-99); Potassium 3.6 mmol/L (3.5-5.1); Sodium 137 mmol/L (135-145); Total Bilirubin 3.3 mg/dl (0.2-1.3); Total Protein 5.2 g/dl (6.3-8.2); eGFR > 60.00
--- NOTE | 2024-06-01 10:00 | W.PN.GS2 ---
Today's Communication / Plan
-
`
Assessment / Plan
-
Assessment: 33-year-old male POD #1 status post laparoscopic cholecystectomy for acute on chronic calculus cholecystitis
Also postprocedural day #2 status post ERCP with biliary stent placement
AFVSS
LFTs significantly improved this a.m. compared to preoperatively
JOSR with expected quantity and character of drainage
Plan: Low-fat diet as tolerated today
Continue Zosyn today
Maintain Keyes until patient/family ready to resume intermittent straight catheterization
Maintain JOSR today; will likely remove prior to discharge home
Probable DC in 24 to 48 hours
Subjective Data
-
Date of Service: June 01, 2024
Patient seen and examined.
Mother at bedside.
Postoperative pain well-controlled
No nausea, appetite returning
Passed some liquid stool
Keyes catheter remains in place
Objective Data
-
Intake and Output
05/31/24 06/01/24 06/02/24
06:59 06:59 06:59
Intake Total 640 / 640 2125 / 2125
Output Total 1785 / 1785 1110 / 1110
Balance -1145 / -1145 1015 / 1015
Intake:
Oral fluids 240 / 240 480 / 480
IV fluids (Total) 300 / 300 1495 / 1495
NSS 300 / 300
IV piggybacks 100 / 100 150 / 150
Output:
Drain Output (Total) 160 / 160
Right Lower Abdomen Eligio- 160 / 160
Mendoza
Urine, Keyes 950 / 950
Urine, Voided 840 / 840
Straight cath output 945 / 945
Other:
Number of unmeasured voidings 2
How many times incontinent 2
How many times incontinent 1
SATURATED amount urine
Vital Signs
Temp Pulse Resp BP Pulse Ox
98.6 F 100 16 101/65 100
06/01/24 06:55 06/01/24 06:55 06/01/24 06:55 06/01/24 06:55 06/01/24 06:55
Lab Results
06/01/24 08:43
06/01/24 08:43
Calcium 7.5 mg/dl (8.4-10.2) L 06/01/24 08:43
Total Bilirubin 3.3 mg/dl (0.2-1.3) H D 06/01/24 08:43
Direct Bilirubin 2.4 mg/dl (0.0-0.4) H 05/28/24 05:17
AST 130 U/L (17-59) H 06/01/24 08:43
ALT 456 U/L (0-50) H 06/01/24 08:43
Alkaline Phosphatase 301 U/L (38-126) H 06/01/24 08:43
Total Protein 5.2 g/dl (6.3-8.2) L 06/01/24 08:43
Albumin 2.9 g/dl (3.5-5.0) L 06/01/24 08:43
Physical Exam
-
NAD AAOx3
ABD: Softly distended, mild tenderness palpation only at incision sites.
JOSR with serosanguineous fluid -nonbilious, nonpurulent
Keyes catheter with clear yellow urine
Patient has a keyes catheter: Yes
Patient has a central line: No
[2024-06-01 11:03] VITALS: BP 109/67
[2024-06-01] MEDS: TORADOL 10 MG IV (14:34)
[2024-06-01 14:55] VITALS: BP 109/75
[2024-06-01] MEDS: HEPARIN SC (18:28)
--- NOTE | 2024-06-01 18:41 | PTCARENOTE ---
Right LQ JOSR drain saturated w/serosanguineous liquid. new dressing placed.
[2024-06-01] MEDS: DEPAKOTE SPRINKLE 375 MG PO (20:21)
[2024-06-01 23:00] VITALS: BP 112/77
[2024-06-02] MEDS: HEPARIN 5000 UNITS SC ×2 (00:05→07:59)
[2024-06-02] MEDS: TORADOL 10 MG IV (00:06)
[2024-06-02] MEDS: ZOSYN 50 IV ×2 (00:06→05:57)
[2024-06-02] MEDS: SYNTHROID 88 MCG PO (05:57)
[2024-06-02 06:00] VITALS: BMI 33.7
--- NOTE | 2024-06-02 06:23 | W.PN.HOSP.TC ---
Today's Communication/Plan
-
discharge
Assessment / Plan
Assessment / Plan
Physical Exam
General: Not acute distress resting comfortably in bed.
HEENT: Normocephalic Atraumatic moist oral mucosa
Pulm: Clear to auscultation b/l
Cardio: S1-S2 no murmurs rubs gallops
Abd: soft mild tenderness bowel sounds present
Neuro: Awake Alert Conversant Coherent
Psych: Calm
33M Spina Bifida wheelchair bound CHEMICAL HANDLER shunt sz chronic constipation/cecostomy hypothyroidism here for acute on chronic calculus cholecystitis.
Ultrasound of the abdomen 05/28/2024-nonvisualization of the pancreas and spleen. Gallstone with gallbladder wall thickening suggestive of acute cholecystitis
CT abdomen and pelvis-gallstone with possible acute cholecystitis moderate fecal material throughout the colon
MRI/MRCP-cholelithiasis with questionable findings to suggest acute cholecystitis. Abrupt cut off of the distal CBD suspicious for choledocholithiasis.
# Elevated LFTs with hyperbilirubinemia
Choledocholithiasis with Postprandial pain nausea
GI eval appreciated EUS/ERCP by Dr. Mg 05/30/2024-biliary sphincterotomy, biliary tree was swept with sludge and pus found 1 plastic stent into the gallbladder, 1 plastic stent into the CBD placed (follow up 1-2 mo EGD/CBD stent removal)
Surgery eval appreciated Lap Aicha w/ Lysis of Adhesions performed 05/31/24 zosyn transitioned to Augmentin, abx to continue for total 5-day post-op 06/05/24 last day of abx
LFTs trending down
Symptomatically improved/resolved
# Spina bifida/Chiari II malformation
# Seizure disorder-continue Depakote 250 mg in the morning and 370 mg at night
# Hypothyroidism-continue levothyroxine
# Neurogenic bladder With self-catheterization 4 to 5 times a day( Mom helps )
dc Rueda prior to discharge
# History of CHEMICAL HANDLER shunt with 6 revisions most recent in 2004
# Chronic constipation-continue MiraLAX when taking p.o.
Has cecostomy in 2013 and tube for administration of enemas (tap water) four times weekly.
stable at this time/no acute issues
# History of kyphosis /scoliosis /lumbar fusion surgery
# DVT prophylaxis-subcutaneous heparin
# Full code
Medically stable for discharge home with outpatient follow up recommendations.
discussed with patient and patient's parents Yahir and Natalie
Total Time Preparing Discharge ___40____ minutes including examination of the patient, summary of the hospital stay, instructions for continuing care to all relevant caregivers; and preparation of discharge records, prescriptions, and referral
forms if necessary.
Anticipated Discharge: Today
Subjective/Interval History
-
Date of Service: June 02, 2024
Seen and examined at bedside in no acute distress sitting up comfortably in bed. Patient reports overall feeling well. Pain well controlled. Denies new acute issues. Tolerating diet. Eager to go home. Parents Yahir and Natalie present during
evaluation.
Objective Data
-
Labs:
Laboratory Results
06/02/24
04:16
WBC Pending
Hgb Pending
Hct Pending
Plt Count Pending
Sodium Pending
Potassium Pending
Chloride Pending
Carbon Dioxide Pending
BUN Pending
Creatinine Pending
Glucose Pending
Calcium Pending
Total Bilirubin Pending
AST Pending
ALT Pending
Alkaline Phosphatase Pending
Vital Signs:
Vital Signs
Temp Pulse Resp BP Pulse Ox
98.4 F 99 16 112/77 94
06/01/24 23:00 06/01/24 23:00 06/01/24 23:00 06/01/24 23:00 06/01/24 23:00
I&O
05/31/24 06/01/24 06/02/24
06:59 06:59 06:59
Intake Total 640 / 640 2124 / 2121899 / 1899
Output Total 1785 / 1785 1110 / 1110 910 / 910
Balance -1145 / -1145 1015 / 1015 990 / 990
[2024-06-02 07:00] VITALS: BP 108/69
[2024-06-02 07:01] LABS: ALT (SGPT) 328 U/L (0-50); AST (SGOT) 76 U/L (17-59); Alkaline Phosphatase 265 U/L (38-126); Blood Urea Nitrogen 7 mg/dl (9-20); Carbon Dioxide 21 mmol/L (22-30); Chloride 104 mmol/L (98-107); Estimated Creatinine Clearance > 125 ml/min; Glucose 77 mg/dl (70-99); Magnesium 2.5 mg/dl (1.6-2.3); Phosphorus 2.5 mg/dl (2.5-4.5); Potassium 4.1 mmol/L (3.5-5.1); Sodium 137 mmol/L (135-145); Total Bilirubin 2.2 mg/dl (0.2-1.3); Total Protein 5.4 g/dl (6.3-8.2); eGFR > 60.00
[2024-06-02] MEDS: VITAMIN D3 (cholecalciferol) 25 MCG PO (07:58)
[2024-06-02] MEDS: DEPAKOTE SPRINKLE 250 MG PO (07:58)
[2024-06-02] MEDS: MIRALAX 8.5 GRAMS PO (07:58)
[2024-06-02] MEDS: ZOLOFT 25 MG PO (07:58)
[2024-06-02] MEDS: DITROPAN 7.5 MG PO (07:58)
[2024-06-02] MEDS: NSS (PRESERVATIVE FREE) 10 ML IV (07:59)
[2024-06-02] MEDS: PROTONIX IV 40 MG IV (07:59)
[2024-06-02 08:34] LABS: Hematocrit 33.4 % (39.0-52.0); Hemoglobin 11.4 g/dL (13.0-18.0); Mean Corp Hgb Conc. 34.1 g/dL (33.0-37.0); Mean Corpuscular Hgb 29.4 pg (27.0-31.0); Mean Corpuscular Volume 86.1 fL (80.0-94.0); Mean Platelet Volume 11.3 fL (7.4-10.4); Platelet Count 191 10^3/uL (130-400); Red Blood Cell Count 3.88 10^6/uL (4.70-6.10); Red Cell Dist. Width 16.9 % (11.5-14.5); White Blood Cell Count 8.7 10^3/uL (4.8-10.8)
--- NOTE | 2024-06-02 08:56 | W.PN.GS2 ---
Addendum entered and electronically signed by Gorna Garcia MD 06/02/24 09:19:
Patient seen in follow-up with surgical BROACH SETTER.
Tolerated dietary advancement
Postoperative incisional pain improving
AFVSS
Incision sites with glue dressings, minimal tenderness
JOSR light serosanguineous fluid -removed
A/P: DC home from surgical standpoint; Augmentin for total 5-day postop course given severity of cholecystitis and presence of SHERIFFS OFFICER shunt to minimize potential infectious risks
Surgical follow-up with myself in 2 to 3 weeks for routine postop
Original Note:
Today's Communication / Plan
-
Dispo planning
Assessment / Plan
-
Assessment: 33-year-old male POD #2 status post laparoscopic cholecystectomy for acute on chronic calculus cholecystitis
Also postprocedural day #3 status post ERCP with biliary stent placement
AFVSS
LFTs continue to improve
No Leukocytosis
JOSR with expected quantity and character of drainage, nonbilious. Removed at bedside.
Plan: Low-fat diet as tolerated
Continue Zosyn while inpatient, would change to Augmentin on d/c for total of a 5 day post op course given cholecystitis findings and SHERIFFS OFFICER shunt history
D/C keyes today. Patient/family ready to resume intermittent straight catheterization
Clear for d/c from surgical standpoint
Subjective Data
-
Date of Service: June 02, 2024
Patient seen and examined at bedside with Dr. Garcia. Overall doing well post operatively. Good pain control, some incisional soreness. Denies n/v. Tolerating diet.
Objective Data
-
Intake and Output
06/01/24 06/02/24 06/03/24
06:59 06:59 06:59
Intake Total 2125 / 2125 2240 / 2240
Output Total 1110 / 1110 1620 / 1620
Balance 1015 / 1015 620 / 620
Intake:
Oral fluids 480 / 480 840 / 840
IV fluids (Total) 1495 / 1495 1200 / 1200
IV piggybacks 150 / 150 200 / 200
Output:
Drain Output (Total) 160 / 160 120 / 120
Right Lower Abdomen Eligio- 160 / 160 120 / 120
Mendoza
Urine, Keyes 950 / 950 700 / 700
Urine, Voided 800 / 800
Other:
How many times incontinent 1
SATURATED amount urine
Vital Signs
Temp Pulse Resp BP Pulse Ox
97.9 F 86 16 108/69 93
06/02/24 07:00 06/02/24 07:00 06/02/24 07:00 06/02/24 07:00 06/02/24 07:00
Lab Results
06/02/24 07:43
06/02/24 04:16
Calcium 8.0 mg/dl (8.4-10.2) L 06/02/24 04:16
Phosphorus 2.5 mg/dl (2.5-4.5) 06/02/24 04:16
Magnesium 2.5 mg/dl (1.6-2.3) H 06/02/24 04:16
Total Bilirubin 2.2 mg/dl (0.2-1.3) H 06/02/24 04:16
Direct Bilirubin 2.4 mg/dl (0.0-0.4) H 05/28/24 05:17
AST 76 U/L (17-59) H 06/02/24 04:16
ALT 328 U/L (0-50) H 06/02/24 04:16
Alkaline Phosphatase 265 U/L (38-126) H 06/02/24 04:16
Total Protein 5.4 g/dl (6.3-8.2) L 06/02/24 04:16
Albumin 3.0 g/dl (3.5-5.0) L 06/02/24 04:16
Physical Exam
-
NAD AAOx3
ABD: NT, mild tenderness palpation only at incision sites.
JOSR with serosanguineous fluid -nonbilious, nonpurulent (removed)
Keyes catheter with clear yellow urine
Patient has a keyes catheter: Yes (orders for removal)
Patient has a central line: No
--- NOTE | 2024-06-02 09:25 | W.PN.GI.CBS2 ---
Today's Communication / Plan
-
Doing well post ERCP, gayathri
Told pt/mother to f/u with Dr Mg in 1-2 months to set up EGD/CBD stent removal
Will sign off
Assessment / Plan
-
Pt is a 33yo with spina bifida with INSURANCE MARKETING SPECIALIST shunt with multiple revisions, Seizure disorder, chronic constipation- cecostomy with 4 times per week flush, Arnold Chiari syndrome, neurogenic bladder and now presents with left flank/back pain with nausea
and vomiting. On admission noted with bili 3.4, AST 896, ALT 1557, alk phos 272. CT without contrast Gallstone with possible acute cholecystitis. Abdominal ultrasound recommended. Moderate fecal material throughout the colon. US noted with
Nonvisualization of the pancreas and spleen. Gallstone with gallbladder wall thickening suggesting acute cholecystitis. Clinical and laboratory correlation recommended. Stable with normal CBD 8mm.
Impression:
Cholelithiasis, choledocholithiasis, cystic duct stone
s/p ERCP/CBD stent/cystic duct stent 05/30
s/p lap gayathri/JOSE 05/31 with retrieval of 2 gallstones from cystic duct
-epigastric/left sided pain
-increased LFT's
-CT/US with concern for acute cholecystitis
-hx chronic constipation with chronic cecostomy tube with flush 4 times per week- moderate stool on CT on admission
-rectal pain (per family periodic complaints of pain )
other med problems:
-spina bifida
-seizure disorder
-arnold chiari syndrome
-neurogenic bladder
Subjective
Subjective
Date of Service: June 02, 2024
No abd pain. Tolerating diet
Objective
Data Reviewed
Laboratory Data:
Laboratory Results
06/02/24 07:43
06/02/24 04:16
Laboratory Results
PT 13.3 Sec (11.4-14.6) 05/29/24 07:27
INR 0.98 05/29/24 07:27
Phosphorus 2.5 mg/dl (2.5-4.5) 06/02/24 04:16
Magnesium 2.5 mg/dl (1.6-2.3) H 06/02/24 04:16
Total Bilirubin 2.2 mg/dl (0.2-1.3) H 06/02/24 04:16
AST 76 U/L (17-59) H 06/02/24 04:16
ALT 328 U/L (0-50) H 06/02/24 04:16
Alkaline Phosphatase 265 U/L (38-126) H 06/02/24 04:16
Lipase 69 U/L (23-300) 05/28/24 00:44
Vital Signs and I&O:
Vital Signs
Temp Pulse Resp BP Pulse Ox
97.9 F 86 16 108/69 93
06/02/24 07:00 06/02/24 07:00 06/02/24 07:00 06/02/24 07:00 06/02/24 07:00
I&O
06/01/24 06/02/24 06/03/24
06:59 06:59 06:59
Intake Total 2125 / 2125 2240 / 2240
Output Total 1110 / 1110 1620 / 1620
Balance 1015 / 1015 620 / 620
Physical Exam
Physical Exam
GI: Soft, Non Distended and Non Tender
[2024-06-02] MEDS: AUGMENTIN 875 MG/125 MG 1 TABLET PO (11:19)
--- NOTE | 2024-06-02 11:33 | CM ---
Patient seen at bedside with mother present. Patient declined VN needs and states that his mother is his VN. Patient for discharge home today with family to transport. CM will continue to follow for discharge planning needs.
Plan; home with no needs at this time.
--- NOTE | 2024-06-02 11:33 | W.DCSUMMARY ---
Discharge Summary
Discharge Data
Date of Admission: 05/28/24
Date of Discharge: 06/02/24
-
Pending Results: No
Discharge Plan
-
Patient Disposition: Home (Routine Discharge)
Discharge Diagnosis/Procedures: Acute on chronic calculus cholecystitis. ERCP sphincterotomy and stent placement. Laparoscopic cholecystectomy
Condition: Good
Diet: Low Fat
Additional Diets: Avoid oily, greasy foods and high fat dairy as these may cause diarrhea immediately after surgery
Activity: As tolerated
Additional Activity: Do not lift over 15 lbs for the next 2-3 weeks
[address] Restrictions: As prior to admission
Bathing Restrictions: OK to Shower
Blood Work: Repeat CBC and CMP with primary care provider in 1 week of discharge
Others Tests: Follow up with GI in 1-2 months for EGD/CBD stent removal
Wound Care: Cover the site where your drain was with clean dry gauze. Change daily until drainage no longer present then ok to leave dressing off
Activity Restrictions/Additional Instructions:
Goran Garcia MD [facility] General Surgery
[facility]
[address] [place] [address], [address]
[place] [address]
[phone]
Post-Operative Instructions for Gallbladder Surgery
The incision sites are sealed with a surgical glue dressing.� It is safe to shower at any time after surgery when the glue is dry.� Let shower water run over the incisions and then pat dry.
Glue dressing typically peels off in 2-3 weeks.
Abdominal/incisional pain and discomfort, shoulder/scapular pain, bloating, and mild nausea, as well as bruising/stiffness and swelling at the incision sites are common after surgery.� If felt to be excessive, notify us.
Please start postoperative pain management using over the counter medications such as Tylenol and Ibuprofen, per instructions on the bottle, as long as there are no medical reasons why you cannot take these medications.
Ice the incisions sites for 20 minutes every hour or so to help with postoperative incisional pain and reduce postoperative surgical site swelling.� Take care NOT to get an ice burn on the skin surface.
A warm heating pad is often helpful to alleviate shoulder/scapular back pains after laparoscopic procedures.� This pain typically dissipates 24-72hrs post op.
Transition to a low fat diet as tolerated after surgery if not experiencing postoperative nausea or significant bloating/distention.� Some fatty food intolerance may occur shortly after surgery (cramps,bloating, nausea,diarrhea with fat intake).
Constipation is common following surgery and postoperative narcotic use.� May use a stool softener such as Colace (100 mg 2x day) to prevent constipation
If no BM 24hrs after surgery, recommend starting daily Miralax
If no BM in 24-48hrs after starting Miralax --> recommend then using a dose of magnesium citrate or milk of magnesia with a Senokot tablet to help alleviate post operative constipation as long as there is no nausea/vomiting and passing gas.
Resume all preoperative medications as prescribed, unless directed otherwise.
Do not drive or drink alcohol for 24 hrs after having anesthesia or while taking narcotic pain medications.
Resume regular daily light activities, such as walking, standing and going up/down stairs as tolerated within 24hrs of surgery.� Please refrain from lifting over 20 lbs or strenuous exercise until postoperative follow up visit &/or approximately
3-4 weeks.�
Call the office with a fever above 101� F, nausea with vomiting, severe abdominal pain, yellowing of skin or eyes, spreading redness and drainage from incision sites or with any concerns/questions.
If not arranged prior to surgery, please call the office to schedule or confirm your 10-14 day postoperative surgical follow-up office visit with Dr. Garcia.
Referrals:
Salomón Chen MD [Family Provider] - in one week
Flynn Mg MD [Active] - in one to two months
Goran Garcia MD [Active] - in two to four weeks
Additional Discharge Medication Instructions: Augmentin for post-op infection prophylaxis has been prescribed to continue through 06/05/24 (last day of antibiotics)
Prescriptions:
New
amoxicillin-pot clavulanate 875-125 mg tablet
1 tab PO Q12 Qty: 7 0RF
Rx Instructions:
Last day of Antibiotics 06/05/24
Continued
acetaminophen [Tylenol] 325 mg Tablet
325 mg PO DAILYPRN PRN (Reason: stomach pains)
polyethylene glycol 3350 [Miralax] 17 gram Powder In Packet
17 g PO DAILYPRN PRN (Reason: constipation)
levothyroxine [Synthroid] 88 mcg Tablet
88 mcg PO DAILY
oxybutynin chloride 5 mg/5 mL Syrup
7.5 mg PO BID
calcium carbonate [Calcium 500] 500 mg calcium (1,250 mg) Tablet,Chewable
1,000 mg PO DAILY
sertraline 50 mg Tablet
25 mg PO BID
divalproex 125 mg Capsule, Delayed Rel Sprinkle
250 mg PO DAILY
divalproex 125 mg Capsule, Delayed Rel Sprinkle
375 mg PO HS
cholecalciferol (vitamin D3) [Vitamin D3] 25 mcg (1,000 unit) Tablet,Chewable
25 mcg PO DAILY
Discharge Orders:
Discharge Patient (As Directed); Ordered 06/02/24
Ordered By: Zhou Nunez
Discharge Date and Time
Print Language: GUINEAN
[2024-06-02 11:46] VITALS: BP 115/79
== END 2024-06-02 13:58 | disposition home or self-care (01) | DRG 417 ==
LOC: 2 SOUTH 04:20
PROVIDERS: Emergency Medicine; Hospitalist; Internal Medicine Gastroenterology; Nurse Practitioner Adult Health; Surgery; ADMITTING PHYSICIAN Hospitalist; ATTENDING PHYSICIAN Internal Medicine; CONSULT PHYSICIAN Internal Medicine; CONSULT PHYSICIAN Surgery; EMERGENCY PHYSICIAN Emergency Medicine; FAMILY PHYSICIAN Family Medicine
PROC: BF131ZZ Fluoroscopy of Gallbladder and Bile Ducts using Low Osmolar Contrast (ICD-10-PCS; 2024-05-30)
PROC: 0F798DZ Dilation of Common Bile Duct with Intraluminal Device, Via Natural or Artificial Opening Endoscopic (ICD-10-PCS; 2024-05-30)
PROC: 0F788DZ Dilation of Cystic Duct with Intraluminal Device, Via Natural or Artificial Opening Endoscopic (ICD-10-PCS; 2024-05-30)
PROC: 0DJ08ZZ Inspection of Upper Intestinal Tract, Via Natural or Artificial Opening Endoscopic (ICD-10-PCS; 2024-05-30)
PROC: 0DN84ZZ Release Small Intestine, Percutaneous Endoscopic Approach (ICD-10-PCS; 2024-05-31)
PROC: 0FN44ZZ Release Gallbladder, Percutaneous Endoscopic Approach (ICD-10-PCS; 2024-05-31)
PROC: 0FT44ZZ Resection of Gallbladder, Percutaneous Endoscopic Approach (ICD-10-PCS; 2024-05-31)
DX: K80.67 Calculus of gallbladder and bile duct with acute and chronic cholecystitis with obstruction (principal); K65.9 Peritonitis, unspecified; Q07.03 Arnold-Chiari syndrome with spina bifida and hydrocephalus; N31.9 Neuromuscular dysfunction of bladder, unspecified; G40.909 Epilepsy, unspecified, not intractable, without status epilepticus; K59.09 Other constipation; M54.9 Dorsalgia, unspecified; R79.89 Other specified abnormal findings of blood chemistry; K82.8 Other specified diseases of gallbladder; E03.9 Hypothyroidism, unspecified; M40.209 Unspecified kyphosis, site unspecified; K66.0 Peritoneal adhesions (postprocedural) (postinfection); R74.8 Abnormal levels of other serum enzymes; Z93.2 Ileostomy status; Z87.440 Personal history of urinary (tract) infections; Z98.2 Presence of cerebrospinal fluid drainage device; Z91.040 Latex allergy status; Z79.890 Hormone replacement therapy; Z98.1 Arthrodesis status; Z99.3 Dependence on wheelchair
CPT/HCPCS: 88304; 74176; 74183; 74330; 76000; 76700; 80053; 81003; 82248; 83690; 83735; 84100; 85025; 85027; 85610; 86308; 86704; 86706; 86708; 86803; 87340; 96374; 96375; 99285; A9575; C1769; C2617; C2625

== ENCOUNTER 2024-07-11 06:12 | Day surgery (SDC) | payer OTHER, SELFPAY ==
[2024-07-11 09:51] VITALS: BMI 34.6
[2024-07-11 09:54] VITALS: BP 122/91; BMI 34.6
[2024-07-11 11:15] VITALS: BP 96/66
[2024-07-11 11:25] VITALS: BP 96/69
[2024-07-11 11:30] VITALS: BP 99/74
[2024-07-11 11:48] VITALS: BP 121/83
== END 2024-07-11 11:50 | disposition home or self-care (01) ==
LOC: SDS 06:12
PROVIDERS: ATTENDING PHYSICIAN Internal Medicine Gastroenterology
DX: Z46.59 Encounter for fitting and adjustment of other gastrointestinal appliance and device (principal)
CPT/HCPCS: 43247

== ENCOUNTER 2025-05-09 13:41 | Emergency (ER) | payer OTHER, SELFPAY ==
[2025-05-09 13:48] VITALS: BP 137/96
--- NOTE | 2025-05-09 17:06 | ED.GENMED ---
History of Present Illness
<Darrin Irving DO - Last Filed: 05/09/25 19:36>
General
Chief Complaint: Male Genito-Urinary Symptoms
Time Seen by Provider: 05/09/25 16:28
<Marisa Kathleen PA-C - Last Filed: 05/09/25 18:55>
History of Present Illness
History of Present Illness:
Josh is a 33-year-old male with past medical history of spina bifida, and epilepsy who presents with the inability to pass a straight cath since 1 AM this morning. Mother reports that she typically helps him with straight cath but was unable to
retract his foreskin this morning. She took him to his primary care provider who was also unable to retract his foreskin and sent to the ER for evaluation. He is insensate secondary to spina bifida therefore does not report any pain. Mother is
concerned due to area of erythema in the scrotum.
Past History
<Darrin Irving DO - Last Filed: 05/09/25 19:36>
Past History
ED Past Medical History: None and Other (spina bifida/shunt/cecostomy)
ED Past Surgical History: None
Social History
Tobacco: Non-smoker
Alcohol: None
Drug: None
Personal: Single
Living: with family
Family History
Family History: Negative Diabetes, Hypertension or CAD
Phy Exam
<Marisa Kathleen PA-C - Last Filed: 05/09/25 18:55>
General Physical Exam
General Presentation: well appearing and no apparent distress
General Skin: warm and dry
General Habitus: normal
General Mental: alert
General Hydration: appears well hydrated
ENT Exam
ENT Exam: EOMI, pharynx normal, neck supple and normocephalic
Eye Exam
Eye Exam: PERRL, cornea clear and conjunctiva normal
Cardiovascular Exam
Cardiovascular Exam: regular rate/rhythm, no edema, no murmur and normal peripheral pulses
Pulmonary Exam
Pulmonary Exam: lungs clear, no respiratory distress, no rales, no crackles, no rhonchi, no stridor, no wheezing and no cough
Gastrointestinal Exam
Gastrointestinal Exam: normal bowel sounds, non tender, soft, no organomegaly, no pulsatile mass and non distended
Genitourinary Exam Male
Exam Male: non circumcised and other (Glans unable to be visualized retracted into foreskin)
Neurological Exam
Neurological Exam: alert, oriented x3, no motor deficits and speech normal
Musculoskeletal Exam
Musculoskeletal Exam: full ROM and no edema
Skin Exam
Skin Exam: normal color, warm/dry, no rash and no petechia
Psychiatric Exam
Psychiatric Exam: normal mood/affect
Course
<Darrin Irving, DO - Last Filed: 05/09/25 19:36>
Orders/Labs/Results
Orders:
Orders
05/09/25 17:37
Urinalysis Reflex To Culture Urgent
Date Specimen was Collected: 05/09/25
Time Specimen was Collected: 17:36
Urine Microscopic Reflex Cult Urgent
Urine Culture Urgent
FRENCH Source: U
Specimen Description:
Date Specimen was Collected: 05/09/25
Time Specimen was Collected: 17:36
05/09/25 20:00
Cephalexin Monohydrate [Keflex] 500 mg PO BID
Abnormal Lab Results
05/09/25
17:37
Leukocyte Esterase Rfl 2+ A
(Negative)
Urine RBC 3-6 A /HPF
(0-2)
Urine WBC (Reflex) 26-30 A /HPF
(0-5)
Urine Bacteria (Reflex) Few A
(Negative)
Urine Albumin (Reflex) 2+ A
(Neg - Trace)
Vital Signs
Initial and Last Documented VS:
Initial Vital Signs
Temp Pulse Resp BP Pulse Ox
98.5 F 78 18 137/96 99
05/09/25 13:48 05/09/25 13:48 05/09/25 13:48 05/09/25 13:48 05/09/25 13:48
Last Documented Vital Signs
Temp Pulse Resp BP Pulse Ox
98.5 F 78 18 137/96 99
05/09/25 13:48 05/09/25 13:48 05/09/25 13:48 05/09/25 13:48 05/09/25 17:06
[place];Marisa Kathleen PA-C - Last Filed: 05/09/25 18:55>
Orders/Labs/Results
Orders:
Orders
05/09/25 17:37
Urinalysis Reflex To Culture Urgent
Date Specimen was Collected: 05/09/25
Time Specimen was Collected: 17:36
Urine Microscopic Reflex Cult Urgent
Urine Culture Urgent
FRENCH Source: U
Specimen Description:
Date Specimen was Collected: 05/09/25
Time Specimen was Collected: 17:36
05/09/25 20:00
Cephalexin Monohydrate [Keflex] 500 mg PO BID
Abnormal Lab Results
05/09/25
17:37
Leukocyte Esterase Rfl 2+ A
(Negative)
Urine RBC 3-6 A /HPF
(0-2)
Urine WBC (Reflex) 26-30 A /HPF
(0-5)
Urine Bacteria (Reflex) Few A
(Negative)
Urine Albumin (Reflex) 2+ A
(Neg - Trace)
Vital Signs
Initial and Last Documented VS:
Initial Vital Signs
Temp Pulse Resp BP Pulse Ox
98.5 F 78 18 137/96 99
05/09/25 13:48 05/09/25 13:48 05/09/25 13:48 05/09/25 13:48 05/09/25 13:48
Last Documented Vital Signs
Temp Pulse Resp BP Pulse Ox
98.5 F 78 18 137/96 99
05/09/25 13:48 05/09/25 13:48 05/09/25 13:48 05/09/25 13:48 05/09/25 17:06
Procedures
<Darrin Irving DO - Last Filed: 05/09/25 19:36>
Urinary Catheter
Procedure completed by: Dr. Irving
Type of urinary catheter: straight cath
Catheter size (kyrgyz): 10
Urine description: clear
Urine output (ml): 400
<Marisa Kathleen PA-C - Last Filed: 05/09/25 18:55>
MDM/Problems Addressed
Differential Diagnosis Includes:
Able to retract foreskin on exam. Case discussed with Dr. Irving who assisted and was able to retract foreskin and straight cath patient for 500 cc of urine. UA sent and mildly positive for infection. It did reflex to culture. Discussed findings
with the patient. Will start him on a course of cephalexin for his urinary tract infection. Will follow-up with his urologist next week. Informed him that if he urine culture is resistant to Keflex we will call him with culture results.
<Darrin Irving DO - Last Filed: 05/09/25 19:36>
*Pulse Oximetry
SaO2: 99
Oxygen Mode of Delivery: Room air
<Marisa Kathleen PA-C - Last Filed: 05/09/25 18:55>
*Pulse Oximetry
Patient hypoxic: no
*Critical Care Note
Total Time (30-74mins, 75-104mins- exclusive of procedures): Not Applicable
ED Attending Note
<Darrin Irving DO - Last Filed: 05/09/25 19:36>
ED Attending Note
Patient seen and examined by attending physician: Yes
I performed the substantive portion of visit, reviewed & personally made and approve the management plan that is documented in note by myself or JOHN.: Yes
ED Attending Note:
34-year-old male who presents after mom had difficulty with performing straight cath at home. She states that she felt like she could not get access to his penis. Exam: I was able to access his penis and retract his foreskin without difficulty.
Straight catheterization was performed by me with clear yellow urine. No evidence of phimosis or paraphimosis. No balanitis. Scrotum appears normal. Assessment plan: Check urinalysis. Suspect due to his positioning she had a difficult time
accessing for straight cath. He will follow-up with his urologist
-
Portions of this chart may have been created with voice recognition software.� Occasional wrong word or��sound alike� substitutions may have occurred due to the inherent limitations of voice recognition software.
Discharge Plan
Departure
Patient Disposition: Home (Routine Discharge)
Date of Disposition: 05/09/25
Time of Disposition: 18:48
Patient with high blood pressure during this ER visit?: No
Discharge Problem:
Acute UTI
Instructions: Urinary tract infection in adults - ED (DC)
Prescriptions:
New
cephalexin 500 mg capsule
500 mg PO BID 7 Days Qty: 14 0RF
No Action
polyethylene glycol 3350 [Miralax] 17 gram Powder In Packet
17 g PO DAILYPRN PRN (Reason: constipation)
levothyroxine [Synthroid] 88 mcg Tablet
88 mcg PO DAILY
oxybutynin chloride 5 mg/5 mL Syrup
7.5 mg PO BID
calcium carbonate [Calcium 500] 500 mg calcium (1,250 mg) Tablet,Chewable
1,000 mg PO DAILY
sertraline 50 mg Tablet
25 mg PO BID
divalproex 125 mg Capsule, Delayed Rel Sprinkle
250 mg PO DAILY
divalproex 125 mg Capsule, Delayed Rel Sprinkle
375 mg PO HS
cholecalciferol (vitamin D3) [Vitamin D3] 25 mcg (1,000 unit) Tablet,Chewable
25 mcg PO DAILY
Referrals:
[facility] MD [Family Provider, Family Practice]
Interventions
Interventions:
*General Assessment Last Done: 05/09/25 13:48
*Neglect/Abuse Screening Last Done: 05/09/25 13:48
*Risk Screen - Suicide (C-SSRS) Last Done: 05/09/25 13:51
*Nursing Disposition Last Done: 05/09/25 19:07
ED-Male Genitourinary Assessment Last Done: 05/09/25 17:00
Discharge Date and Time
Discharge Date/Time: 05/09/25 19:08
Print Language: BURKINAN
[2025-05-09 17:55] LABS: Urine Character Clear (Clear)
[2025-05-09 18:27] LABS: Urine Squamous Cell >30 /LPF (Few)
[2025-05-09 18:28] LABS: Urine White Cell 26-30 /HPF (0-5)
[2025-05-09] MEDS: KEFLEX 500 MG PO (18:55)
== END 2025-05-09 19:08 | disposition home or self-care (01) ==
LOC: EMR 13:41
PROVIDERS: Surgery Trauma Surgery; EMERGENCY PHYSICIAN Emergency Medicine; FAMILY PHYSICIAN Family Medicine
DX: N39.0 Urinary tract infection, site not specified (principal); B95.2 Enterococcus as the cause of diseases classified elsewhere; G40.909 Epilepsy, unspecified, not intractable, without status epilepticus; Q05.9 Spina bifida, unspecified
CPT/HCPCS: 99283; 51701; 81003; 81015; 87077; 87086; 87186